=== PATIENT | female | born 1950 | race Caucasian/White ===

== ENCOUNTER 2016-04-27 02:27 | Emergency (ER) | payer OTHER ==
[2016-04-27 02:34] VITALS: O2SAT 97
--- NOTE | 2016-04-27 03:06 | EDPHY ---
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 She presents emergency room as she feels a foreign body sensation in the back of her throat she thinks maybe 1 of her pills got stuck in her throat. She is able swallow but has a discomfort when she swallows. She denies pain in her lung, denies vomiting, denies unable to swallow or drooling. She thinks happened around midnight when she took her magnesium pills which are somewhat large. Past Medical History: Thyroid disease, ?Insomnia Past Surgical History: denies recent pertinent surgical history Social History: denies use of drugs alcohol tobacco products Family History: Noncontributory ROS REVIEW OF SYSTEMS: A comprehensive 10 point review of systems is otherwise negative aside from elements mentioned in the history of present illness. Exam Constitutional triage nursing summary reviewed, vital signs reviewed, awake/ alert. Eyes normal conjunctivae and sclera, EOMI, PERRLA. HENT posterior pharynx is normal, no swelling, uvula midline, he would swallow no trismus, no stridor on exam, normal inspection, atraumatic, moist mucus membranes, no epistaxis, neck supple/ no meningismus, no raccoon eyes. Respiratory clear to auscultation bilaterally, normal breath sounds, no respiratory distress, no wheezing. Cardiovascular rate normal, regular rhythm, no murmur, no edema, distal pulses normal. Gastrointestinal soft, non-tender, no rebound, no guarding, normal bowel sounds, no distension, no pulsatile mass. Genitourinary no CVA tenderness. Musculoskeletal no midline vertebral tenderness, full range of motion, no calf swelling, no tenderness of extremities, no meningismus, good pulses, neurovascularly intact. Skin pink, warm, & dry, no rash, skin atraumatic. Neurologic awake, alert and oriented x 3, AAOx3, moves all 4 extremities equally, motor intact, sensory intact, CN II-XII intact, normal cerebellar, normal vision, normal speech. Psychiatric normal mood/affect. Heme/Lymph/Immune no lymphadenopathy. Differential Diagnosis: Includes but is not limited to in a particular order pill esophagitis, foreign body in throat, posterior pharynx scratch from ingestion of pill Medical Decision Making: Patient had a soft tissue x-ray neck to see if we can visualize any foreign body. Re-evaluate. Re-evaluation: 0422: ED x-ray soft tissue neck: negative for foreign body. 0422: patient p.o. challenge well with cold fluids no difficulty. She is not choking she is not drooling she is able swallow appropriately. She does have some mild discomfort when she swallows on the right side posterior pharynx. She is not coughing she is not gagging she is not drooling she is able tolerate her secretions and her airway is intact. She drank cold fluids without difficulty. Unlikely to have retained foreign body in the posterior pharynx most likely posterior pharynx irritation due to pill fragment.. 0428: Spoke with Dr. Gutierrez with ENT he would like to see the patient today in the office. patient is to call their at 8:30 a.m.. Source: Patient - Medical/Surgical History Hx Asthma: No Hx Chronic Respiratory Disease: No Hx Diabetes: No Hx Cardiac Disease: No Hx Renal Disease: No Hx Cirrhosis: No Hx Alcoholism: No Hx HIV/AIDS: No Hx Splenectomy or Spleen Trauma: No Other PMH: hypothyroid, abd laparoscopy - Social History Smoking Status: Never smoked Constitutional: Initial Vital Signs Temperature (C) 36.4 C 04/27/16 02:30 Heart Rate 65 04/27/16 02:30 Respiratory Rate 16 04/27/16 02:30 Blood Pressure 106/55 L 04/27/16 02:30 O2 Sat (%) 97 04/27/16 02:30 O2 Delivery Mode Room Air Allergies/Adverse Reactions: ampicillin [Ampicillin] Allergy (Intermediate, Verified 04/27/16 02:35) Hives lactose Allergy (Verified 04/27/16 02:35) Home Medications: Medication Instructions Recorded Doxepin HCl 04/27/16 LORAZEPAM 04/27/16 Levothyroxine 04/27/16 Liothyronine Sodium 04/27/16 MAGNESIUM 04/27/16 Melatonin 04/27/16 Departure - Departure Disposition: Home, Routine, Self-Care Clinical Impression: Pill dysphagia Condition: Good Instructions: Pharyngitis (ED) Additional Instructions: 1. Return emergency room immediately if he have trouble breathing. 2. Have you feel like your tract return emergency room. 3. please call ENT and follow up with them today. Please call at 8:30 a.m.. The number is [phone]. Please call Dr. Gutierrez office and follow up with him 4. if you are worse have worsening symptoms shortness of breath, choking sensation trouble breathing return immediately to the emergency room. Referrals: Tiana Ayala MD [Primary Care Provider] - As per Instructions Momo Gutierrez MD [Medical Doctor] - As per Instructions
[2016-04-27 04:43] VITALS: BP 130/55; PULSE 62; RESP 17; TEMP 97.7
== END 2016-04-27 04:43 | disposition home or self-care (01) ==
DX: R13.10 Dysphagia, unspecified (principal)

== ENCOUNTER → 2016-09-13 | Outpatient (CLI) | payer OTHER | LOC: BMCIMAGING 13:55 | PROVIDERS: ATTEND Family Medicine | DX: Z12.31 Encounter for screening mammogram for malignant neoplasm of breast (principal); Z13.820 Encounter for screening for osteoporosis; M81.0 Age-related osteoporosis without current pathological fracture | CPT/HCPCS: G0202 ==

== ENCOUNTER → 2017-01-03 | Outpatient (CLI) | payer OTHER ==
[~2017-01-03] MED LIST: IOPAMIDOL (ISOVUE-300) 100 ML BTL ONE
== END ==
LOC: FIMAGING 12:43
PROVIDERS: ATTEND Emergency Medicine
DX: R10.31 Right lower quadrant pain (principal); R53.83 Other fatigue; R93.5 Abnormal findings on diagnostic imaging of other abdominal regions, including retroperitoneum
CPT/HCPCS: Q9967

== ENCOUNTER 2017-01-05 12:26 | Inpatient (IN) | payer OTHER ==
[2017-01-05 13:13] LABS: PLATELET COUNT 161 10^3/uL (150-400)
[2017-01-05] MEDS ORDERED: NS 1,000 ML IV ONE ×2 (13:14→15:57)
--- NOTE | 2017-01-05 13:21 | EDPHY ---
H & P Time Seen by Provider: 01/05/17 12:54 HPI/ROS: HPI Balance problems, fever, headache, abdominal discomfort. 67-year-old female by private vehicle with her . This patient was seen at the [facility] 2 days ago for complaint of abdominal discomfort. She had a CT scan of her abdomen and pelvis done at that time. This showed a large macro lobulated pelvic mass likely uterine fibroids. Appendix was well visualized and was normal. She had a distended gallbladder. She had severe constipation. She reports that since yesterday she has had an intermittent fever. She reports that she has been feeling fatigued and today she reports that she has had balance problems which she describes as not being able to walk in a straight line with sudden onset of losing her balance. She also reports having a dull low-grade headache which was gradual in onset since yesterday. It is better now with Tylenol. No history of trauma. ROS: Constitutional: As above, no chills. No weakness. Eyes: No discharge. No changes in vision. ENT: No sore throat. No nasal congestion or rhinorrhea. Respiratory: No cough. No shortness of breath. Cardiac: No chest pain, no palpitations. Gastrointestinal: No abdominal pain, no vomiting, no diarrhea. Genitourinary: No hematuria. No dysuria or increased frequency with urination. Musculoskeletal: No back pain. No neck pain. No myalgias or arthralgias. Skin: No rashes. Neurological: No headache. No focal weakness or altered sensation. Past medical history: Abdominal surgery, hypothyroid. Social history: Nonsmoker. Here with her . No alcohol. Physical Exam: General Appearance: Alert, she does not appear in distress. She is frail in stature. This patient is responding to questions appropriately and in full sentences. Eyes: Pupils equal and round no pallor or injection. No lid edema, erythema or injection. ENT, Mouth: Mucous membranes are moist. The pharyngeal tissues are unremarkable. No edema or swelling. No asymmetry suggestive of abscess. No erythema or exudates. Respiratory: There are no retractions, lungs are clear to auscultation with good air movement bilaterally. Cardiovascular: Regular rate and rhythm. No murmur. Gastrointestinal: Abdomen is soft and nontender, no masses, bowel sounds normal. No focal tenderness at McBurney's point. No Richards sign. Neurological: Motor sensory function is grossly intact. Cranial nerves are normal. She will walk in a straight line and suddenly veer to her right side. Skin: Warm and dry, no rashes. Musculoskeletal: Neck is supple and nontender. Extremities are symmetrical. All joints range without pain or impingement. Psychiatric: No agitation. No depression. Database: EKG: Imaging: Diffusion-weighted MRI without contrast of brain: Age-related changes only. No acute pathology. Results were discussed with staff radiologist Dr. Bing Cruz. Chest x-ray PA and lateral; the cardiac mediastinal silhouette is unremarkable. She has a right middle lobe and right lower lobe consolidation/pneumonia. No other acute cardiopulmonary disease process noted. Interpreted by me. Procedures: Emergency department course: Vital signs reviewed. She has been hypotensive in the emergency department. She is afebrile currently. Pulse oximetry is 90% on room air. IV was placed. She was placed on a monitor. EKG performed and reviewed by myself. She will initially be given 500 cc to 1 L of IV normal saline. 2:40 p.m., the patient is currently in MRI. IV Rocephin and IV azithromycin have been ordered for treatment of pneumonia. 3:25 p.m., patient re-evaluated. She appears comfortable at this time. He is getting her IV antibiotics. Results of her MRI and plan for admission discussed. 3:30 p.m., patient's blood pressure is 101/58. Hospitalist is at the bedside. I discussed her case in detail with Dr. Watters. Patient admitted in stable condition. Differential Diagnosis: The differential diagnosis on this patient includes but is not limited to urinary tract infection, pneumonia, intracranial mass, cerebellar infarct. This represents a partial list of diagnoses considered. These considerations are based on history, physical exam, past history, reassessment and diagnostic testing. Smoking Status: Never smoked Constitutional: Initial Vital Signs Temperature (C) 37.1 C 01/05/17 12:32 Heart Rate 94 01/05/17 12:32 Respiratory Rate 18 01/05/17 12:32 Blood Pressure 80/44 L 01/05/17 12:32 O2 Sat (%) 91 L 01/05/17 12:32 O2 Delivery Mode Room Air Allergies/Adverse Reactions: ampicillin [Ampicillin] Allergy (Intermediate, Verified 04/27/16 02:35) Hives lactose Allergy (Verified 04/27/16 02:35) Home Medications: Medication Instructions Recorded Doxepin HCl 04/27/16 LORAZEPAM 04/27/16 Levothyroxine 04/27/16 Liothyronine Sodium 04/27/16 MAGNESIUM 04/27/16 Melatonin 04/27/16 Medical Decision Making - Diagnostics Imaging Results: Imaging Impressions Chest X-Ray 01/05/17 13:05 Impression: Right middle lobe and right lower lobe consolidation/pneumonia. Brain MRI 01/05/17 13:14 Impression: 1. Nothing acute intracranially to explain balance problems. 2. Mild amount of periventricular white matter disease best seen on axial T2 FLAIR sequence, nonspecific. Findings discussed with Catalina Cantrell MD, at 1514 hours, 01/05/2017. Final report concurs with initial preliminary interpretation. - Data Points Laboratory Results: Laboratory Results 01/05/17 12:58 01/05/17 12:58 01/05/17 01/05/17 01/05/17 14:15 13:20 12:58 WBC RBC Hgb Hct MCV MCH MCHC RDW Plt Count MPV Neut % (Auto) Lymph % (Auto) [place] % (Auto) Eos % (Auto) Baso % (Auto) Nucleat RBC Rel Count Absolute Neuts (auto) Absolute Lymphs (auto) Absolute Monos (auto) Absolute Eos (auto) Absolute Basos (auto) Absolute Nucleated RBC Immature Gran % Seg Neutrophils % Band Neutrophils % Lymphocytes % Monocytes % Immature Gran # Absolute Seg Neuts Absolute Band Neuts Absolute Lymphocytes Absolute Monocytes RBC/WBC/PLT Morphology Platelet Estimate PT 15.8 SEC H SEC (12.0-15.0) INR 1.26 H (0.83-1.16) APTT 40.4 SEC H SEC (23.0-38.0) VBG Lactic Acid Sodium Potassium Chloride Carbon Dioxide Anion Gap BUN Creatinine Estimated GFR Glucose Calcium Total Bilirubin TSH 1.480 uIU/mL uIU/mL (0.465-4.680) Urine Color YELLOW Urine Appearance HAZY Urine pH 6.0 (5.0-7.5) Ur Specific [place] 1.018 (1.002-1.030) Urine Protein 1+ H (NEGATIVE) Urine Ketones NEGATIVE (NEGATIVE) Urine Blood NEGATIVE (NEGATIVE) Urine Nitrate NEGATIVE (NEGATIVE) Urine Bilirubin NEGATIVE (NEGATIVE) Urine Urobilinogen NEGATIVE EU EU (0.2-1.0) Ur Leukocyte Esterase NEGATIVE (NEGATIVE) Urine RBC 1-3 /hpf /hpf (0-3) Urine WBC 3-5 /hpf H /hpf (0-3) Ur Epithelial Cells NONE SEEN /lpf /lpf (NONE-1+) Hyaline Casts 25-50 /lpf H /lpf (0-1) Urine Mucus TRACE /lpf /lpf (NONE-1+) Urine Glucose NEGATIVE (NEGATIVE) 01/05/17 01/05/17 01/05/17 12:58 12:58 12:58 WBC 6.17 10^3/uL 10^3/uL (3.80-9.50) RBC 4.00 10^6/uL L 10^6/uL (4.18-5.33) Hgb 12.6 g/dL g/dL (12.6-16.3) Hct 36.9 % L % (38.0-47.0) MCV 92.3 fL fL (81.5-99.8) MCH 31.5 pg pg (27.9-34.1) MCHC 34.1 g/dL g/dL (32.4-36.7) RDW 14.0 % % (11.5-15.2) Plt Count 161 10^3/uL 10^3/uL (150-400) MPV 10.3 fL fL (8.7-11.7) Neut % (Auto) 87.1 % H % (39.3-74.2) Lymph % (Auto) 9.9 % L % (15.0-45.0) [place] % (Auto) 1.8 % L % (4.5-13.0) Eos % (Auto) 0.0 % L % (0.6-7.6) Baso % (Auto) 1.0 % % (0.3-1.7) Nucleat RBC Rel Count 0.0 % % (0.0-0.2) Absolute Neuts (auto) 5.38 10^3/uL 10^3/uL (1.70-6.50) Absolute Lymphs (auto) 0.61 10^3/uL L 10^3/uL (1.00-3.00) Absolute Monos (auto) 0.11 10^3/uL L 10^3/uL (0.30-0.80) Absolute Eos (auto) 0.00 10^3/uL L 10^3/uL (0.03-0.40) Absolute Basos (auto) 0.06 10^3/uL 10^3/uL (0.02-0.10) Absolute Nucleated RBC 0.00 10^3/uL 10^3/uL (0-0.01) Immature Gran % 0.2 % % (0.0-1.1) Seg Neutrophils % 59 % % Band Neutrophils % 29 % % Lymphocytes % 9 % % Monocytes % 3 % % Immature Gran # 0.01 10^3/uL 10^3/uL (0.00-0.10) Absolute Seg Neuts 3.64 10^/uL 10^/uL (1.70-6.50) Absolute Band Neuts 1.79 10^3/uL H 10^3/uL (0.00-0.70) Absolute Lymphocytes 0.56 10^3/uL L 10^3/uL (1.00-3.00) Absolute Monocytes 0.19 10^3/uL L 10^3/uL (0.30-0.80) RBC/WBC/PLT Morphology NORMAL (NORMAL) Platelet Estimate ADEQUATE (ADEQ) PT INR APTT VBG Lactic Acid 1.6 mmol/L mmol/L (0.7-2.1) Sodium 135 mEq/L mEq/L (134-144) Potassium 4.4 mEq/L mEq/L (3.5-5.2) Chloride 100 mEq/L mEq/L (97-110) Carbon Dioxide 24 mEq/l mEq/l (22-31) Anion Gap 11 mEq/L mEq/L (8-16) BUN 34 mg/dL H mg/dL (7-23) Creatinine 1.1 mg/dL H mg/dL (0.6-1.0) Estimated GFR 50 Glucose 122 mg/dL H mg/dL (70-100) Calcium 9.1 mg/dL mg/dL (8.5-10.4) Total Bilirubin 0.6 mg/dL mg/dL (0.1-1.4) TSH Urine Color Urine Appearance Urine pH Ur Specific [place] Urine Protein Urine Ketones Urine Blood Urine Nitrate Urine Bilirubin Urine Urobilinogen Ur Leukocyte Esterase Urine RBC Urine WBC Ur Epithelial Cells Hyaline Casts Urine Mucus Urine Glucose Medications Given: Discontinued Medications Sodium Chloride (Ns) 1,000 mls @ 0 mls/hr IV EDNOW ONE; Wide Open PRN Reason: Protocol Stop: 01/05/17 13:15 Last Admin: 01/05/17 13:24 Dose: 1,000 mls Ceftriaxone Sodium/Dextrose (Rocephin 1 Gm (Premix)) 50 mls @ 100 mls/hr IV EDNOW ONE PRN Reason: Protocol Stop: 01/05/17 15:12 Last Admin: 01/05/17 15:18 Dose: 50 mls Departure - Departure Disposition: [facility] Inpatient Acute Clinical Impression: Hypotension, Ataxia, Pneumonia
[2017-01-05 13:27] LABS: INR 1.26 (0.83-1.16); PROTIME(PATIENT) 15.8 SEC (12.0-15.0)
[2017-01-05] MEDS ORDERED: HYDROmorphONE/DILAUDID 1 MG/ML INJ ONE (14:08)
[2017-01-05] MEDS ORDERED: AZITHROMYCIN IV 500 MG in D5W 250 ML IV ONE (14:43)
[2017-01-05] MEDS ORDERED: ONDANSETRON 4 MG/2 ML VIAL IVP PRN (15:57)
[2017-01-05] MEDS ORDERED: IPRATROPIUM/ALBUTEROL 3 ML DEYVIAL IH PRN (16:00)
[2017-01-05] MEDS ORDERED: BISACODYL 10 MG SUPP PR PRN (17:00)
--- NOTE | 2017-01-05 17:53 | GHP ---
[f rep st] HISTORY AND PHYSICAL DATE OF ADMISSION: 01/05/2017 CHIEF COMPLAINT: Fevers and abdominal pain. HISTORY OF PRESENT ILLNESS: This is a 67-year-old female with limited past medical history of hypoth yroidism and insomnia, who presents with a constellation of complaints including weakness, fevers, ab dominal discomfort. The patient was seen in an outpatient clinic this week with similar complaints a nd had CT imaging obtained, which showed a large pelvic mass most consistent with fibroids. The sergo ent returned home, was continuing to have discomfort and poor oral intake with what she described as weakness and fevers. Therefore, presented to the Emergency Department. In the ED, she denies any ch est pain. Reports that she has had some exertional shortness of breath and some cough nonproductive of sputum. She has had a lot of weakness and very little mobility. reports that her oral in take has been markedly reduced recently. She has described some weakness with ambulation, no specifi c numbness or tingling, as well as some headache and some lightheadedness. The patient reports passi ng of stool yesterday that she describes as difficult to pass, but soft when she passed it. Denies d ysuria or hematuria. Denies lower extremity edema, specific myalgias or arthralgias, but does endors e subjective fevers and chills. PAST MEDICAL HISTORY: 1. Hypothyroidism. 2. Insomnia. SOCIAL HISTORY: Negative for tobacco, alcohol, or illicit drugs. FAMILY HISTORY: Positive for colon cancer and bladder cancer in her father. ADVANCED DIRECTIVES: The patient is full cor, full tube. Her would be her medical decision maker. REVIEW OF SYSTEMS: A 10-point review of systems is negative with the exception of that reported in t he HPI. PHYSICAL EXAMINATION: VITAL SIGNS: Blood pressure systolic 80/44, heart rate 94, respiratory rate 1 8, saturating 91% on room air, 37.1. GENERAL: This is a thin appearing, frail appearing, elderly wo man in no acute distress. HEENT: Notable for dry mucous membranes. Eye exam is negative for any ic terus. CARDIAC: The patient is regular rate and rhythm. PULMONARY: Markedly reduced pulmonary eff ort. There are rales bilateral bases with reduced breath sounds on the right. GASTROINTESTINAL: Po sitive bowel sounds. Abdomen is soft. She is nontender to palpation. MUSCULOSKELETAL: Negative fo r any lower extremity edema. SKIN: Negative for any rashes. NEUROLOGIC: She is alert and oriented x3. PSYCHIATRIC: She is cooperative on interview and examination. LABORATORY DATA: White count is 6.1, hematocrit 36.9, platelets of 161, creatinine is 1.1 above rece nt baseline. BUN is elevated at 34. Urinalysis shows hyaline casts. CT of the abdomen, which I personally reviewed and interpreted, shows a large pelvic mass and constip ation. Chest x-ray, which I personally reviewed and interpreted, shows a right-sided infiltrate. ASSESSMENT AND PLAN: This is a 67-year-old female presenting with abdominal pain, fever, and weaknes s. 1. Community-acquired pneumonia. The patient has a pronounced right-sided infiltrate, including the middle and lower lobes, although fewer pulmonary symptoms. We will initiate IV ceftriaxone, azithro mycin, Mucinex and DuoNeb. Blood cultures were obtained from the Emergency Department. 2. Acute kidney injury, suspect secondary to hypovolemia. We will fluid resuscitate and recheck her kidney status in the morning. 3. Left-sided abdominal pain. The patient did have recent CT imaging showing a pelvic mass most con sistent with fibroids. However, the radiologist could not rule out ovarian involvement. I have orde red a pelvic ultrasound to better evaluate the ovaries. This image also showed profound constipation , which I think is likely the source of this patient's left-sided pain. We will initiate aggressive bowel regimen this evening, in hopes of appropriately treating her discomfort. 4. Weakness. This is a diffuse complaint. The patient did have an MRI of her brain in the Emergenc y Department, which was negative for any strokes. I suspect this is likely related to her acute illn ess, hypovolemia, poor p.o. intake. We will fluid resuscitate, encourage p.o., and see how the patie nt does with physical therapy and occupational therapy tomorrow. 5. Hypothyroidism. We will continue her Synthroid replacement therapy. PROPHYLAXIS: Lovenox. DIET: Regular. DISPOSITION: I expect greater than 2 midnights, as the patient is presenting with community-acquired pneumonia and weakness that I believe will likely take longer than 2 midnights to effectively treat before safe disposition home. I have discussed the case with the emergency room physician. The sergo ent will be triaged to the medical-surgical floor for IV fluids, IV antibiotics, and care. /[id number]/MODL
[2017-01-05] MEDS: SENNOSIDES/DOCUSATE SODIUM TAB PO SCH ×2 (17:54→21:06)
[2017-01-05] MEDS: POLYETHYLENE GLYCOL 3350 17 GM PKT PO SCH (17:54)
[2017-01-05] MEDS ORDERED: PSYLLIUM FIBER PO SCH (20:15)
[2017-01-05] MEDS ORDERED: MAGNESIUM PO SCH (21:00)
[2017-01-05] MEDS ORDERED: THEANINE PO SCH (21:00)
[2017-01-05] MEDS ORDERED: TRYPTOPHAN 500 MG PO SCH (21:00)
[2017-01-05] MEDS ORDERED: CALCIUM PO SCH (21:00)
[2017-01-05] MEDS ORDERED: Herbals/Supplements -Info Only PO SCH (21:00)
[2017-01-05] MEDS: MELATONIN 3 MG TAB PO SCH (21:06)
[2017-01-05] MEDS: guaiFENesin 600 MG TAB.ER PO SCH (21:07)
[2017-01-05] MEDS: LORazepam 0.5 MG TAB PO SCH (21:07)
[2017-01-05] MEDS: DOXEPIN HCL 25 MG CAP PO SCH (21:08)
[2017-01-05] MEDS: [UNRECOGNIZED DRUG - OTHER] PO SCH (21:10)
[2017-01-05] MEDS: ADVANCED PROBIOTIC PO SCH (21:12)
[2017-01-05] MEDS: TAURINE PO SCH (21:13)
[2017-01-05] MEDS: PSYLLIUM FIBER PO SCH (21:16)
--- NOTE | 2017-01-05 22:49 | PDMN ---
Medical Necessity Medical necessity: C/M review: Acute and persistent community acquired pneumonia, right sided infiltrate including middle and lower lobes on CXR, shortness of breath, acute kidney injury, BUN 34, Cr 1.1, left sided abdominal pain, weakness requiring ongoing IV Azithramycin QD, IV Ceftriaxone QD, IV Morphine, supplemental O2, acute inpt PT/OT, comorbid pelvic mass most consistent with fibroids on CT, hypothyroidism. MD anticipates > 2 MN LOS for ongoing med nec for eval and TX of above.
[2017-01-06 04:56] LABS: PLATELET COUNT 144 10^3/uL (150-400)
[2017-01-06] MEDS: LEVOTHYROXINE 100 MCG TAB PO SCH (05:46)
[2017-01-06] MEDS ORDERED: PSYLLIUM PO SCH (08:00)
[2017-01-06] MEDS: ADVANCED PROBIOTIC PO SCH ×2 (08:13→18:05)
[2017-01-06] MEDS: [UNRECOGNIZED DRUG - OTHER] PO SCH ×2 (08:13→18:05)
[2017-01-06] MEDS: PSYLLIUM FIBER PO SCH ×2 (08:17→18:07)
[2017-01-06] MEDS: POLYETHYLENE GLYCOL 3350 17 GM PKT PO SCH (08:18)
[2017-01-06] MEDS: guaiFENesin 600 MG TAB.ER PO SCH ×2 (08:19→21:19)
[2017-01-06] MEDS: ACETAMINOPHEN 325 MG TAB PO PRN ×3 (08:19→21:32)
[2017-01-06] MEDS: SENNOSIDES/DOCUSATE SODIUM TAB PO SCH ×2 (08:19→21:28)
[2017-01-06] MEDS: ENOXAPARIN 40 MG/0.4 ML SYR SC SCH (08:22)
--- NOTE | 2017-01-06 08:39 | HOSPPROG ---
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 -will request cog eval by speech -d/c morphine Hypothyroidism - cont replacement Constipation - has impacted stool -bowel regimen, prn enema Weakness / deconditioning - PT/OT DVT PPLX - lovenox Full code Dispo - cont inpt Subjective: Pt up in chair. Feels ok, still weak. +cough. No fevers. Has migrating pain in abdomen and ribs. Objective: Vital Signs Temp Pulse Resp BP Pulse Ox 36.8 C 90 16 102/61 88 L 01/06/17 07:13 01/06/17 07:13 01/06/17 07:13 01/06/17 07:13 01/06/17 07:13 Laboratory Results 01/06/17 04:23 01/06/17 04:23 01/05/17 01/06/17 01/07/17 06:59 05:59 05:59 Intake Total Balance PT 15.8 SEC (12.0-15.0) H 01/05/17 12:58 INR 1.26 (0.83-1.16) H 01/05/17 12:58 - Physical Exam Constitutional: no apparent distress Eyes: PERRL Ears, Nose, Mouth, Throat: moist mucous membranes Cardiovascular: regular rate and rhythym Respiratory: no respiratory distress, inspiratory crackles Gastrointestinal: normoactive bowel sounds, soft, non-tender abdomen Skin: warm Musculoskeletal: full muscle strength Neurologic: AAOx3 Psychiatric: poor insight ICD10 Worksheet Patient Problems: Problems Problem Status Onset Ataxia Acute Hypotension Acute Pneumonia Acute
--- NOTE | 2017-01-06 08:39 | HOSPPROG ---
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 -will request cog eval by speech -d/c morphine Hypothyroidism - cont replacement Constipation - has impacted stool -bowel regimen, prn enema Weakness / deconditioning - PT/OT DVT PPLX - lovenox Full code Dispo - cont inpt Subjective: Pt up in chair. Feels ok, still weak. +cough. No fevers. Has migrating pain in abdomen and ribs. Objective: Vital Signs Temp Pulse Resp BP Pulse Ox 36.8 C 90 16 102/61 88 L 01/06/17 07:13 01/06/17 07:13 01/06/17 07:13 01/06/17 07:13 01/06/17 07:13 Laboratory Results 01/06/17 04:23 01/06/17 04:23 01/05/17 01/06/17 01/07/17 06:59 05:59 05:59 Intake Total Balance PT 15.8 SEC (12.0-15.0) H 01/05/17 12:58 INR 1.26 (0.83-1.16) H 01/05/17 12:58 - Physical Exam Constitutional: no apparent distress Eyes: PERRL Ears, Nose, Mouth, Throat: moist mucous membranes Cardiovascular: regular rate and rhythym Respiratory: no respiratory distress, inspiratory crackles Gastrointestinal: normoactive bowel sounds, soft, non-tender abdomen Skin: warm Musculoskeletal: full muscle strength Neurologic: AAOx3 Psychiatric: poor insight ICD10 Worksheet Patient Problems: Problems Problem Status Onset Ataxia Acute Hypotension Acute Pneumonia Acute
--- NOTE | 2017-01-06 08:39 | HOSPPROG ---
Hospitalist Progress Note Assessment/Plan: Pneumococcal bacteremia secondary to CAP - Cont Ceftriaxone, await final Cx and sensitivities -repeat BCx's tomorrow at noon -if repeat BCxs neg and bacteria sensitive to oral agent, could possibly d/c on oral atbx x2 weeks -will discuss with ID FANNIE - resolved with IVF's Pelvic mass - likely fibroid, needs outpt f/u with CLINICAL PROGRAM CONSULTANT and ongoing surveillance u/s -used car salesperson consult requested ?cognitive impairment - acknowledge bacteremia may be contributing to cognitive changes. -will request cog eval by speech -d/c morphine Hypothyroidism - cont replacement Constipation - has impacted stool -bowel regimen, prn enema Weakness / deconditioning - PT/OT DVT PPLX - lovenox Full code Dispo - cont inpt Subjective: Pt up in chair. Feels ok, still weak. +cough. No fevers. Has migrating pain in abdomen and ribs. Objective: Vital Signs Temp Pulse Resp BP Pulse Ox 36.8 C 90 16 102/61 88 L 01/06/17 07:13 01/06/17 07:13 01/06/17 07:13 01/06/17 07:13 01/06/17 07:13 Laboratory Results 01/06/17 04:23 01/06/17 04:23 01/05/17 01/06/17 01/07/17 06:59 05:59 05:59 Intake Total Balance PT 15.8 SEC (12.0-15.0) H 01/05/17 12:58 INR 1.26 (0.83-1.16) H 01/05/17 12:58 - Physical Exam Constitutional: no apparent distress Eyes: PERRL Ears, Nose, Mouth, Throat: moist mucous membranes Cardiovascular: regular rate and rhythym Respiratory: no respiratory distress, inspiratory crackles Gastrointestinal: normoactive bowel sounds, soft, non-tender abdomen Skin: warm Musculoskeletal: full muscle strength Neurologic: AAOx3 Psychiatric: poor insight ICD10 Worksheet Patient Problems: Problems Problem Status Onset Ataxia Acute Hypotension Acute Pneumonia Acute
[2017-01-06] MEDS ORDERED: LIOTHYRONINE SODIUM 5 MCG TAB PO SCH (09:00)
[2017-01-06] MEDS: AZITHROMYCIN IV 500 MG in D5W 250 ML IV SCH (11:01)
--- NOTE | 2017-01-06 12:06 | ASMTCMCOM ---
CM Note CM Note Notes: Reviewed chart, spoke w/ FRANTZ Zhou for discharge plan, pt's progress. Pt admitted for abd pain, fever, viral pneumonia. Per MD notes, pt has lg pelvic mass, likely fibroids. Pt lives with her , independently. PT/OT evals pending sec to weakness and fatigue. Discharge needs remain TBD at this time. CM will cont to follow. Current Discharge Plan: To be determined Date Signed: 01/06/2017 12:06 PM Electronically Signed By:Talisha Steiner RN
[2017-01-06] MEDS: ONDANSETRON DISINTEGRATING 4 MG TAB PO PRN (12:22)
[2017-01-06] MEDS ORDERED: IBUPROFEN 200 MG TAB PO PRN (14:16)
[2017-01-06] MEDS ORDERED: LACTULOSE 20 GM/30 ML UDCUP PO PRN (15:07)
[2017-01-06] MEDS ORDERED: MAGNESIUM HYDROXIDE 30 ML UDCUP PO PRN (15:07)
--- NOTE | 2017-01-06 15:32 | PDCONSULT ---
Status Controller Note: Gynecology Consult Note Date of Consultation: 01/06/2017 Service Requesting Consult: Hospitalist (Internal Medicine Service) Reason for Consultation: Pelvic mass, abdominal pain HPI: The patient is a 67-year-old G0 menopausal white female who presented to ED on 01/05/17 with impaired gait and balance, headache, fever, weakness and abdominal pain. She was diagnosed with community-acquired pneumonia with a pronounced right-sided (middle and lower lung lobes) infiltrate and admitted for IV antibiotics and supportive care. Brain MRI showed age-related changed only with no acute pathology. Work-up of her left sided pain included review of recent CT scan (performed two days prior during [facility] visit for similar complaints) and a pelvic ultrasound was ordered and performed. US revealed an enlarged uterus (14 cm in diameter) which included more than one, heterogenous, lobulated uterus with exophytic appearing masses (likely fibroids) . The patient's past medical history is significant for hypothyroidism and insomnia. The patient does not provide a good history so far during this hospitalization, so it was unclear how long this pelvic mass has been present or if she has been previously made aware of possible fibroids. She states that she has never been , the she receives route well-woman annual exams at [facility], and that she has been menopausal for at least 15 years. Upon questioning, she states that she has had vaginal bleeding after intercourse after experiencing menopause, but again her history was unclear and vague. She reports diffuse, vague abdominal pain--she cannot point to a specific location or give a clear report of the frequency, quality, duration of pain or any alleviating to worsening factors that she has noted. PAST MEDICAL HISTORY: 1. Hypothyroidism 2. Insomnia 3. Menopausal since age 52. PAST SURGICAL HISTORY: 1. Abdominal surgery, patient cannot specify reason for surgery or date of surgery. MEDICATIONS: Doxepin HCl, Lorazepam, Levothyroxine, Liothyronine Sodium, Magnesium, Melatonin. ALLERGIES: Ampicillin (hives), Lactose Intolerance. 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 States she experienced menopause about 15 years ago. FAMILY HISTORY: Non-contributory. SOCIAL HISTORY: Denies ETOH or tobacco use. Lives with her (Mr. Cuello). ROS: A 10-point review of systems is negative with the exception of those reported in HPI above. PHYSICAL EXAM: Female book illustrator (patients nurse) was present for entire physical exam. VITALS: Blood Pressure: 102/61 Temp: 36.8C Resp: 16 O2: 89% RA. GENERAL: She is thin, frail elderly-appearing in no acute distress. She is alert and not clearly oriented to time, place, and but does know who she is. Her mood is sullen and her affect is not normal. NECK: Without thyromegaly or lymphadenopathy. LUNGS: Clear to auscultation, with decreased lung sounds in right lung maldonado. Reduced breath effort. HEART: Regular rate and rhythm without murmurs. BREASTS: Deferred. ABDOMEN: Bowel sounds present. Soft, nontender, and nondistended. Mass present in suprapubic region, non-tender to palpation. 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 Vulva, vagina, and urethra, all slightly atrophied. Speculum exam was not performed in hospital room, however bimanual exam was performed. Cervix was not enlarged. Uterus was enlarged, approximately [id number] uterus and slightly mobile. Patient tolerated exam without difficulty or complaint or excessive pain reported. Significantly distended rectum, full of soft stool was palpated through posterior vagina on bimanual exam. MSK: Negative for any lower extremity swelling. SKIN: Negative for rashes. LABS: WBC: 4.62 H/H: 10.9/33.0 Plt: 144; Na 137, K 4.6 Pelvic US: Large heterogeneous pelvic mass, likely representing an exophytic fibroid. This corresponds to a presumed fibroid uterus seen in 2007. I spoke with on-call radiologist today, Dr. Jeffery Villalba, and we reviewed available images togethercomparing 2007 study with yesterdays images. ASSESSMENT AND PLAN: 67-year-old menopausal female admitted to hospital for treatment of suspected Pneumococcal community-acquired pneumonia with multiple complaintsincluding vague abdominal pain. Work-up reveals previously seen (10 years ago) and similarly described (size and morphology) likely fibroid uterus. 1. Suspected enlarged uterus containing fibroid(s): Recommend follow-up with [facility] gynecology team following discharge from current hospitalization. Although mass is palpable on exam, patient does not have an urgent need for abdominal surgery. Her history is unclear regarding whether or not she has experienced post-menopausal bleeding. Endometrial sampling is recommended if we can confirm history of post-menopausal bleeding. 2. Constipation/impacted rectum: Recommend enema to relieve pressure in rectum and descending colon. This constipation could be significantly contributing to her abdominal pain and symptoms. Thanks for requesting help desk consultant services from the [facility] for gynecologic recommendations for your patient. Do not hesitate to contact our team again for further recommendations during Ms. Noyola admission. We will be available for additional consult at your request.
--- NOTE | 2017-01-06 15:32 | PDCONSULT ---
Chronic Disease Epidemiologist Note: Gynecology Consult Note Date of Consultation: 01/06/2017 Service Requesting Consult: Hospitalist (Internal Medicine Service) Reason for Consultation: Pelvic mass, abdominal pain HPI: The patient is a 67-year-old G0 menopausal white female who presented to ED on 01/05/17 with impaired gait and balance, headache, fever, weakness and abdominal pain. She was diagnosed with community-acquired pneumonia with a pronounced right-sided (middle and lower lung lobes) infiltrate and admitted for IV antibiotics and supportive care. Brain MRI showed age-related changed only with no acute pathology. Work-up of her left sided pain included review of recent CT scan (performed two days prior during [facility] visit for similar complaints) and a pelvic ultrasound was ordered and performed. US revealed an enlarged uterus (14 cm in diameter) which included more than one, heterogenous, lobulated uterus with exophytic appearing masses (likely fibroids) . The patient's past medical history is significant for hypothyroidism and insomnia. The patient does not provide a good history so far during this hospitalization, so it was unclear how long this pelvic mass has been present or if she has been previously made aware of possible fibroids. She states that she has never been , the she receives route well-woman annual exams at [facility], and that she has been menopausal for at least 15 years. Upon questioning, she states that she has had vaginal bleeding after intercourse after experiencing menopause, but again her history was unclear and vague. She reports diffuse, vague abdominal pain--she cannot point to a specific location or give a clear report of the frequency, quality, duration of pain or any alleviating to worsening factors that she has noted. PAST MEDICAL HISTORY: 1. Hypothyroidism 2. Insomnia 3. Menopausal since age 52. PAST SURGICAL HISTORY: 1. Abdominal surgery, patient cannot specify reason for surgery or date of surgery. MEDICATIONS: Doxepin HCl, Lorazepam, Levothyroxine, Liothyronine Sodium, Magnesium, Melatonin. ALLERGIES: Ampicillin (hives), Lactose Intolerance. 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 States she experienced menopause about 15 years ago. FAMILY HISTORY: Non-contributory. SOCIAL HISTORY: Denies ETOH or tobacco use. Lives with her (Mr. Cuello). ROS: A 10-point review of systems is negative with the exception of those reported in HPI above. PHYSICAL EXAM: Female examination scorer (patients nurse) was present for entire physical exam. VITALS: Blood Pressure: 102/61 Temp: 36.8C Resp: 16 O2: 89% RA. GENERAL: She is thin, frail elderly-appearing in no acute distress. She is alert and not clearly oriented to time, place, and but does know who she is. Her mood is sullen and her affect is not normal. NECK: Without thyromegaly or lymphadenopathy. LUNGS: Clear to auscultation, with decreased lung sounds in right lung maldonado. Reduced breath effort. HEART: Regular rate and rhythm without murmurs. BREASTS: Deferred. ABDOMEN: Bowel sounds present. Soft, nontender, and nondistended. Mass present in suprapubic region, non-tender to palpation. 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 Vulva, vagina, and urethra, all slightly atrophied. Speculum exam was not performed in hospital room, however bimanual exam was performed. Cervix was not enlarged. Uterus was enlarged, approximately [id number]-[id number] uterus and slightly mobile. Patient tolerated exam without difficulty or complaint or excessive pain reported. Significantly distended rectum, full of soft stool was palpated through posterior vagina on bimanual exam. MSK: Negative for any lower extremity swelling. SKIN: Negative for rashes. LABS: WBC: 4.62 H/H: 10.9/33.0 Plt: 144; Na 137, K 4.6 Pelvic US: Large heterogeneous pelvic mass, likely representing an exophytic fibroid. This corresponds to a presumed fibroid uterus seen in 2007. I spoke with on-call radiologist today, Dr. Jeffery Villalba, and we reviewed available images togethercomparing 2007 study with yesterdays images. ASSESSMENT AND PLAN: 67-year-old menopausal female admitted to hospital for treatment of suspected Pneumococcal community-acquired pneumonia with multiple complaintsincluding vague abdominal pain. Work-up reveals previously seen (10 years ago) and similarly described (size and morphology) likely fibroid uterus. 1. Suspected enlarged uterus containing fibroid(s): Recommend follow-up with [facility] gynecology team following discharge from current hospitalization. Although mass is palpable on exam, patient does not have an urgent need for abdominal surgery. Her history is unclear regarding whether or not she has experienced post-menopausal bleeding. Endometrial sampling is recommended if we can confirm history of post-menopausal bleeding. 2. Constipation/impacted rectum: Recommend enema to relieve pressure in rectum and descending colon. This constipation could be significantly contributing to her abdominal pain and symptoms. Thanks for requesting internet sales consultant services from the [facility] for gynecologic recommendations for your patient. Do not hesitate to contact our team again for further recommendations during Ms. Noyola admission. We will be available for additional consult at your request.
--- NOTE | 2017-01-06 15:32 | PDCONSULT ---
[employer] Chemist Note: Gynecology Consult Note Date of Consultation: 01/06/2017 Service Requesting Consult: Hospitalist (Internal Medicine Service) Reason for Consultation: Pelvic mass, abdominal pain HPI: The patient is a 67-year-old G0 menopausal white female who presented to ED on 01/05/17 with impaired gait and balance, headache, fever, weakness and abdominal pain. She was diagnosed with community-acquired pneumonia with a pronounced right-sided (middle and lower lung lobes) infiltrate and admitted for IV antibiotics and supportive care. Brain MRI showed age-related changed only with no acute pathology. Work-up of her left sided pain included review of recent CT scan (performed two days prior during [facility] visit for similar complaints) and a pelvic ultrasound was ordered and performed. US revealed an enlarged uterus (14 cm in diameter) which included more than one, heterogenous, lobulated uterus with exophytic appearing masses (likely fibroids) . The patient's past medical history is significant for hypothyroidism and insomnia. The patient does not provide a good history so far during this hospitalization, so it was unclear how long this pelvic mass has been present or if she has been previously made aware of possible fibroids. She states that she has never been , the she receives route well-woman annual exams at [facility], and that she has been menopausal for at least 15 years. Upon questioning, she states that she has had vaginal bleeding after intercourse after experiencing menopause, but again her history was unclear and vague. She reports diffuse, vague abdominal pain--she cannot point to a specific location or give a clear report of the frequency, quality, duration of pain or any alleviating to worsening factors that she has noted. PAST MEDICAL HISTORY: 1. Hypothyroidism 2. Insomnia 3. Menopausal since age 52. PAST SURGICAL HISTORY: 1. Abdominal surgery, patient cannot specify reason for surgery or date of surgery. MEDICATIONS: Doxepin HCl, Lorazepam, Levothyroxine, Liothyronine Sodium, Magnesium, Melatonin. ALLERGIES: Ampicillin (hives), Lactose Intolerance. 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 States she experienced menopause about 15 years ago. FAMILY HISTORY: Non-contributory. SOCIAL HISTORY: Denies ETOH or tobacco use. Lives with her (Mr. Cuello). ROS: A 10-point review of systems is negative with the exception of those reported in HPI above. PHYSICAL EXAM: Female mastercam programmer (patients nurse) was present for entire physical exam. VITALS: Blood Pressure: 102/61 Temp: 36.8C Resp: 16 O2: 89% RA. GENERAL: She is thin, frail elderly-appearing in no acute distress. She is alert and not clearly oriented to time, place, and but does know who she is. Her mood is sullen and her affect is not normal. NECK: Without thyromegaly or lymphadenopathy. LUNGS: Clear to auscultation, with decreased lung sounds in right lung maldonado. Reduced breath effort. HEART: Regular rate and rhythm without murmurs. BREASTS: Deferred. ABDOMEN: Bowel sounds present. Soft, nontender, and nondistended. Mass present in suprapubic region, non-tender to palpation. 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 Vulva, vagina, and urethra, all slightly atrophied. Speculum exam was not performed in hospital room, however bimanual exam was performed. Cervix was not enlarged. Uterus was enlarged, approximately 98-[id number]-wtrzl uterus and slightly mobile. Patient tolerated exam without difficulty or complaint or excessive pain reported. Significantly distended rectum, full of soft stool was palpated through posterior vagina on bimanual exam. MSK: Negative for any lower extremity swelling. SKIN: Negative for rashes. LABS: WBC: 4.62 H/H: 10.9/33.0 Plt: 144; Na 137, K 4.6 Pelvic US: Large heterogeneous pelvic mass, likely representing an exophytic fibroid. This corresponds to a presumed fibroid uterus seen in 2007. I spoke with on-call radiologist today, Dr. Jeffery Villalba, and we reviewed available images togethercomparing 2007 study with yesterdays images. ASSESSMENT AND PLAN: 67-year-old menopausal female admitted to hospital for treatment of suspected Pneumococcal community-acquired pneumonia with multiple complaintsincluding vague abdominal pain. Work-up reveals previously seen (10 years ago) and similarly described (size and morphology) likely fibroid uterus. 1. Suspected enlarged uterus containing fibroid(s): Recommend follow-up with [facility] gynecology team following discharge from current hospitalization. Although mass is palpable on exam, patient does not have an urgent need for abdominal surgery. Her history is unclear regarding whether or not she has experienced post-menopausal bleeding. Endometrial sampling is recommended if we can confirm history of post-menopausal bleeding. 2. Constipation/impacted rectum: Recommend enema to relieve pressure in rectum and descending colon. This constipation could be significantly contributing to her abdominal pain and symptoms. Thanks for requesting marketing sales consultant services from the [facility] for gynecologic recommendations for your patient. Do not hesitate to contact our team again for further recommendations during Ms. Noyola admission. We will be available for additional consult at your request.
[2017-01-06] MEDS: DOXEPIN HCL 25 MG CAP PO SCH (21:19)
[2017-01-06] MEDS: LORazepam 0.5 MG TAB PO SCH (21:19)
[2017-01-06] MEDS: MELATONIN 3 MG TAB PO SCH (21:19)
[2017-01-06] MEDS: TAURINE PO SCH (21:20)
[2017-01-06] MEDS: THEANINE PO SCH (21:23)
[2017-01-06] MEDS: TRYPTOPHAN 500 MG PO SCH (21:24)
[2017-01-06] MEDS: CALCIUM PO SCH (21:25)
[2017-01-06] MEDS: MAGNESIUM PO SCH (21:25)
[2017-01-07 05:18] LABS: PLATELET COUNT 184 10^3/uL (150-400)
[2017-01-07] MEDS: LIOTHYRONINE SODIUM 5 MCG TAB PO SCH (06:26)
[2017-01-07] MEDS: LEVOTHYROXINE 112 MCG TAB PO SCH (06:26)
[2017-01-07] MEDS: guaiFENesin 600 MG TAB.ER PO SCH ×2 (08:03→20:24)
[2017-01-07] MEDS: ENOXAPARIN 40 MG/0.4 ML SYR SC SCH (08:03)
[2017-01-07] MEDS: SENNOSIDES/DOCUSATE SODIUM TAB PO SCH ×2 (08:03→22:41)
[2017-01-07] MEDS: PSYLLIUM FIBER PO SCH ×2 (08:05→16:54)
[2017-01-07] MEDS: ADVANCED PROBIOTIC PO SCH ×2 (08:05→16:54)
[2017-01-07] MEDS: [UNRECOGNIZED DRUG - OTHER] PO SCH ×2 (08:05→16:53)
[2017-01-07] MEDS: POLYETHYLENE GLYCOL 3350 17 GM PKT PO SCH (08:10)
[2017-01-07] MEDS: ACETAMINOPHEN 325 MG TAB PO PRN ×3 (08:23→20:23)
[2017-01-07] MEDS: AZITHROMYCIN IV 500 MG in D5W 250 ML IV SCH (09:07)
--- NOTE | 2017-01-07 10:22 | HOSPPROG ---
Hospitalist Progress Note Assessment/Plan: Pneumococcal bacteremia secondary to CAP - Cont Ceftriaxone, await final Cx and sensitivities -repeat BCx's today were drawn at 1400 (dated as 01/06, but I confirmed with lab they were drawn today) -if repeat BCxs neg and bacteria sensitive to oral agent, could possibly d/c on oral atbx -will discuss duration of atbx with ID FANNIE - resolved with IVF's Pelvic mass - likely fibroid -heat plant specialist consulted yesterday, recommends outpt f/u with [facility] ?cognitive impairment - acknowledge bacteremia may be contributing to cognitive changes. -will request cog eval by speech -d/c morphine Hypothyroidism - cont replacement Constipation - has impacted stool -bowel regimen, prn enema Weakness / deconditioning - PT/OT DVT PPLX - lovenox Full code Dispo - cont inpt Subjective: Pt feels okay, still has migrating abdominal pain, heating pad helps. No fevers. A little cough. No CP or SOB. No fevers. Feels more steady on her feet. Objective: Vital Signs Temp Pulse Resp BP Pulse Ox 36.8 C 72 16 104/57 L 89 L 01/07/17 08:00 01/07/17 08:00 01/07/17 08:00 01/07/17 08:00 01/07/17 09:53 Laboratory Results 01/07/17 04:37 01/06/17 04:23 01/06/17 01/07/17 01/08/17 05:59 05:59 05:59 Intake Total 650 Balance 650 PT 15.8 SEC (12.0-15.0) H 01/05/17 12:58 INR 1.26 (0.83-1.16) H 01/05/17 12:58 - Physical Exam Constitutional: no apparent distress Eyes: PERRL Ears, Nose, Mouth, Throat: moist mucous membranes Cardiovascular: regular rate and rhythym Respiratory: no respiratory distress Gastrointestinal: normoactive bowel sounds, soft, non-tender abdomen Skin: warm Musculoskeletal: full muscle strength Neurologic: AAOx3 Psychiatric: interacting appropriately ICD10 Worksheet Patient Problems: Problems Problem Status Onset Ataxia Acute Hypotension Acute Pneumonia Acute
--- NOTE | 2017-01-07 10:22 | HOSPPROG ---
Hospitalist Progress Note Assessment/Plan: Pneumococcal bacteremia secondary to CAP - Cont Ceftriaxone, await final Cx and sensitivities -repeat BCx's today were drawn at 1400 (dated as 01/06, but I confirmed with lab they were drawn today) -if repeat BCxs neg and bacteria sensitive to oral agent, could possibly d/c on oral atbx -will discuss duration of atbx with ID FANNIE - resolved with IVF's Pelvic mass - likely fibroid -scoreboard operator consulted yesterday, recommends outpt f/u with [facility] ?cognitive impairment - acknowledge bacteremia may be contributing to cognitive changes. -will request cog eval by speech -d/c morphine Hypothyroidism - cont replacement Constipation - has impacted stool -bowel regimen, prn enema Weakness / deconditioning - PT/OT DVT PPLX - lovenox Full code Dispo - cont inpt Subjective: Pt feels okay, still has migrating abdominal pain, heating pad helps. No fevers. A little cough. No CP or SOB. No fevers. Feels more steady on her feet. Objective: Vital Signs Temp Pulse Resp BP Pulse Ox 36.8 C 72 16 104/57 L 89 L 01/07/17 08:00 01/07/17 08:00 01/07/17 08:00 01/07/17 08:00 01/07/17 09:53 Laboratory Results 01/07/17 04:37 01/06/17 04:23 01/06/17 01/07/17 01/08/17 05:59 05:59 05:59 Intake Total 650 Balance 650 PT 15.8 SEC (12.0-15.0) H 01/05/17 12:58 INR 1.26 (0.83-1.16) H 01/05/17 12:58 - Physical Exam Constitutional: no apparent distress Eyes: PERRL Ears, Nose, Mouth, Throat: moist mucous membranes Cardiovascular: regular rate and rhythym Respiratory: no respiratory distress Gastrointestinal: normoactive bowel sounds, soft, non-tender abdomen Skin: warm Musculoskeletal: full muscle strength Neurologic: AAOx3 Psychiatric: interacting appropriately ICD10 Worksheet Patient Problems: Problems Problem Status Onset Ataxia Acute Hypotension Acute Pneumonia Acute
[2017-01-07] MEDS: BIOASTIN PO SCH (13:14)
[2017-01-07] MEDS: PRESERVISION PO SCH ×2 (16:53→22:31)
[2017-01-07] MEDS: ONDANSETRON DISINTEGRATING 4 MG TAB PO PRN (18:06)
[2017-01-07] MEDS: MELATONIN 3 MG TAB PO SCH (22:26)
[2017-01-07] MEDS: DOXEPIN HCL 25 MG CAP PO SCH (22:26)
[2017-01-07] MEDS: LORazepam 0.5 MG TAB PO SCH (22:26)
[2017-01-07] MEDS: THEANINE PO SCH (22:28)
[2017-01-07] MEDS: CALCIUM PO SCH (22:29)
[2017-01-07] MEDS: MAGNESIUM PO SCH (22:29)
[2017-01-07] MEDS: TRYPTOPHAN 500 MG PO SCH (22:30)
[2017-01-07] MEDS: TAURINE PO SCH (22:33)
[2017-01-08] MEDS: BIOASTIN PO SCH (07:31)
[2017-01-08] MEDS: [UNRECOGNIZED DRUG - OTHER] PO SCH ×2 (07:32→17:02)
[2017-01-08] MEDS: PSYLLIUM FIBER PO SCH ×2 (07:33→17:07)
[2017-01-08] MEDS: PRESERVISION PO SCH ×2 (07:35→17:04)
[2017-01-08] MEDS: ADVANCED PROBIOTIC PO SCH ×2 (07:35→17:02)
[2017-01-08] MEDS: LIOTHYRONINE SODIUM 5 MCG TAB PO SCH (07:36)
[2017-01-08] MEDS: LEVOTHYROXINE 100 MCG TAB PO SCH (07:36)
[2017-01-08] MEDS: SENNOSIDES/DOCUSATE SODIUM TAB PO SCH ×2 (07:58→22:29)
[2017-01-08] MEDS: ENOXAPARIN 40 MG/0.4 ML SYR SC SCH (07:59)
[2017-01-08] MEDS: guaiFENesin 600 MG TAB.ER PO SCH ×2 (08:01→22:30)
[2017-01-08] MEDS: AZITHROMYCIN IV 500 MG in D5W 250 ML IV SCH (08:50)
[2017-01-08] MEDS: ACETAMINOPHEN 325 MG TAB PO PRN ×3 (09:24→21:43)
[2017-01-08] MEDS: POLYETHYLENE GLYCOL 3350 17 GM PKT PO SCH ×2 (11:45→13:30)
--- NOTE | 2017-01-08 14:44 | ASMTCMCOM ---
CM Note CM Note Notes: PT and OT are discharging pt from services. Pt will most likely be able to d/c independent when medically stable. CM available for changes. Date Signed: 01/08/2017 02:43 PM Electronically Signed By:CADENCE Kingsley
--- NOTE | 2017-01-08 14:54 | GCON ---
[f rep st] CONSULTATION INFECTIOUS DISEASE CONSULTATION DATE OF CONSULTATION: 01/08/2017 REFERRING PHYSICIAN: Ning James MD REASON FOR CONSULTATION: Pneumococcal bacteremia with pneumonia. CHIEF COMPLAINT: Fevers, right-sided pain. HISTORY OF PRESENT ILLNESS: This is a 67-year-old female with a past medical history significant for hypothyroidism and insomnia, who states that she started to feel ill around of last week. Initially, she had pain on the right side of her abdomen with some myalgias and chills. Over the nex t couple of days she started to have fevers ranging up to 101 with ongoing chills, increasing right-s ided pain, and now cough. She does not recall being too short of breath in general. She came into [facility] ED and had a chest x-ray, which showed that she had a right middle lobe and lower lobe pneumonia. She came to the ED on the . She was noted to have elevated white blood cell count of 11.7 with a left shift. An abdominal CT was done at that time, which showed a large macrolobulated pelvic mass suggestive of a uterine fibroid, but she came back to the ER on the because she continued to not feel well, and at that time a chest x-ray showed the above findings. She had blood cultures x2 sets drawn at the time and 2 bottles in that set are growing Streptococcus pneumoniae. She was placed on empiric ceftriaxone and azithromycin at the time of admission, and is currently still on that regimen . Her pneumococcal isolate is angel sensitive. She had followup blood cultures done yesterday, which are pending. Her white blood cell count has normalized along with her left shift. She is currently off oxygen, but previously was on 2 L. She has mostly a dry cough. She has a poor inspiratory effor t, is not bringing up any phlegm. Infectious Disease is now consulted for further evaluation seconda ry to the above. REVIEW OF SYSTEMS: GENERAL: Had fevers and shaking chills. HEAD: Mild headache. EYES: No change in vision. ENT: No sore throat, difficulty swallowing, ear pain or ear drainage. CARDIOVASCULAR: Denies any chest pain or rapid heartbeat. RESPIRATORY: Denies any shortness of breath, but is havi ng cough, mostly dry in nature, with poor inspiratory effort. ABDOMEN: Lower abdomen with still miya e discomfort. Previously had nausea. No vomiting at present. Had a small bowel movement. : No dysuria or hematuria. MUSCULOSKELETAL: Denies any joint pains or muscle aches. SKIN: No rashes. Rest of 10-point review of systems essentially negative except for above. PAST MEDICAL HISTORY: Significant for hypothyroidism and insomnia. PAST SURGICAL HISTORY: Significant for hernia surgery, laparoscopy, and a melanoma excision involvin g her right lower extremity. ALLERGIES: Ampicillin, which she states was a long time ago and it gave her hives. She denied short ness of breath or throat swelling, and she is tolerating ceftriaxone at present. SOCIAL HISTORY: Denies any smoking history. Drinks alcohol socially. No illicit drugs. She lives with her and her dog. She did not travel outside the country recently and her travels outsid [facility] were to the [facility] in September and [facility], in November. FAMILY HISTORY: Significant for colon cancer and bladder cancer in her father. PHYSICAL EXAMINATION: VITAL SIGNS: Temperature current 37.2, pulse is 75, blood pressure 103/60, re spiratory rate is 18, saturations are 92% on room air. GENERAL: The patient is sitting up in a olga r. No acute respiratory distress. Awake, alert, oriented x3. HEENT: Head is normocephalic, atraum atic. Eyes without conjunctival injection. No petechiae noted. Oropharynx is clear without posteri or erythema or thrush. CARDIOVASCULAR: S1, S2. Regular rate and rhythm. No murmurs appreciated. RESPIRATORY: Coarse breath sounds on the right. Normal lung maldonado with egophony changes. ABDOMEN: Positive bowel sounds in all quadrants. Soft, nondistended. Some tenderness in the lower abdomen. MUSCULOSKELETAL: No obvious joint effusions. SKIN: No obvious lower extremity edema. No obvious rashes. LABORATORY DATA: White blood cell count is 4.8, hemoglobin 11.3, platelets 184. Sodium 137, potassi um 4.6, chloride 104, bicarb 27, BUN is 22, creatinine 0.8. LFTs several days ago within the normal range. Urinalysis on admission unremarkable. Blood cultures as stated above. IMAGING: Has also been reviewed by me. She also had a pelvic ultrasound, which showed a fibroid. ASSESSMENT: Pneumococcal bacteremia with right middle lobe and lower lobe pneumonia. PLAN: The patient is currently on both ceftriaxone and azithromycin at present. She is clinically d oing better from her time of admission. Her pneumococcal isolate is angel sensitive. Would discontinu e azithromycin and ceftriaxone for now. She could start on Levaquin in the morning to complete 10 da ys more of therapy. We will follow up on her blood cultures to ensure that they are negative. Would recommend a followup chest x-ray in 4-6 weeks to ensure resolution. Thank you very much for allowing us the opportunity to care for the patient in consultation. /[id number]/MODL
--- NOTE | 2017-01-08 17:06 | HOSPPROG ---
Hospitalist Progress Note Assessment/Plan: Pneumococcal bacteremia secondary to CAP - Cont Ceftriaxone for now. -repeat BCx's yesterday pending -discussed with ID, plan to d/c on oral Levaquin for 10 more days of tx -ID to f/u on repeat BCx's FANNIE - resolved with IVF's Pelvic mass - likely fibroid -content development manager consulted yesterday, recommends outpt f/u with [facility] ?cognitive impairment - acknowledge bacteremia may be contributing to cognitive changes. -speech evaluating, recs outpt rehab Hypothyroidism - cont replacement Constipation - has impacted stool -bowel regimen, prn enema Weakness / deconditioning - PT/OT DVT PPLX - lovenox Full code Dispo - cont inpt, likely dc in am Subjective: Pt feels better. Less cough, SOB. No CP. No fevers. Energy improved. Eating well. Objective: Vital Signs Temp Pulse Resp BP Pulse Ox 37.1 C 73 16 111/65 91 L 01/08/17 15:34 01/08/17 15:34 01/08/17 15:34 01/08/17 15:34 01/08/17 15:34 Laboratory Results 01/07/17 04:37 01/06/17 04:23 01/07/17 01/08/17 01/09/17 05:59 05:59 05:59 Intake Total 650 300 Balance 650 300 PT 15.8 SEC (12.0-15.0) H 01/05/17 12:58 INR 1.26 (0.83-1.16) H 01/05/17 12:58 - Physical Exam Constitutional: no apparent distress Eyes: PERRL Ears, Nose, Mouth, Throat: moist mucous membranes Cardiovascular: regular rate and rhythym Respiratory: no respiratory distress, inspiratory crackles Gastrointestinal: normoactive bowel sounds, soft, non-tender abdomen Skin: warm Musculoskeletal: full muscle strength Neurologic: AAOx3 Psychiatric: interacting appropriately ICD10 Worksheet Patient Problems: Problems Problem Status Onset Ataxia Acute Hypotension Acute Pneumonia Acute
[2017-01-08] MEDS: TRYPTOPHAN 500 MG PO SCH (22:26)
[2017-01-08] MEDS: TAURINE PO SCH ×2 (22:27→22:34)
[2017-01-08] MEDS: MAGNESIUM PO SCH (22:28)
[2017-01-08] MEDS: CALCIUM PO SCH (22:28)
[2017-01-08] MEDS: DOXEPIN HCL 25 MG CAP PO SCH (22:30)
[2017-01-08] MEDS: MELATONIN 3 MG TAB PO SCH (22:30)
[2017-01-08] MEDS: LORazepam 0.5 MG TAB PO SCH (22:31)
[2017-01-08] MEDS: THEANINE PO SCH (22:35)
[2017-01-08 22:48] VITALS: RESP 14
[2017-01-09] MEDS: LEVOTHYROXINE 112 MCG TAB PO SCH (06:29)
[2017-01-09] MEDS: LIOTHYRONINE SODIUM 5 MCG TAB PO SCH (06:29)
[2017-01-09 07:41] VITALS: BP 119/61; PULSE 76; TEMP 98.2
[2017-01-09] MEDS: [UNRECOGNIZED DRUG - OTHER] PO SCH (07:45)
[2017-01-09] MEDS: ADVANCED PROBIOTIC PO SCH (07:46)
[2017-01-09] MEDS: PSYLLIUM FIBER PO SCH (07:47)
--- NOTE | 2017-01-09 08:39 | PDHOMEO2F ---
Home Oxygen Face to Face Home Orders: I certify that a physician or a nurse practitioner or physician's junior administrative assistant has had a fawh-cz-iody encounter with this patient on the date of this order due to the diagnosis listed, which relates to the primary reason the patient requires home oxygen. Alternative treatments have been tried, or considered, and deemed ineffective. It is anticipated that supplemental oxygen will result in improvement with treatment. Home oxygen qualifying diagnosis: Pneumonia SpO2 on room air (%): 85 Frequency of home oxygen needed: during sleep Home oxygen liters per minute: 2 LPM Home oxygen delivery device: nasal cannula Concentrator: Yes E-tanks for mobility and back up: No I certify that, based on these findings, the home oxygen is medically necessary for this patient for the following length of time. Length of time home oxygen needed: 1 month
--- NOTE | 2017-01-09 08:39 | PDHOMEO2F ---
Home Oxygen Face to Face Home Orders: I certify that a physician or a nurse practitioner or physician's administrative office assistant has had a xnwk-pq-fpez encounter with this patient on the date of this order due to the diagnosis listed, which relates to the primary reason the patient requires home oxygen. Alternative treatments have been tried, or considered, and deemed ineffective. It is anticipated that supplemental oxygen will result in improvement with treatment. Home oxygen qualifying diagnosis: Pneumonia SpO2 on room air (%): 85 Frequency of home oxygen needed: during sleep Home oxygen liters per minute: 2 LPM Home oxygen delivery device: nasal cannula Concentrator: Yes E-tanks for mobility and back up: No I certify that, based on these findings, the home oxygen is medically necessary for this patient for the following length of time. Length of time home oxygen needed: 1 month
--- NOTE | 2017-01-09 08:39 | PDHOMEO2F ---
Home Oxygen Face to Face Home Orders: I certify that a physician or a nurse practitioner or physician's care assistant has had a bvdy-yc-lpog encounter with this patient on the date of this order due to the diagnosis listed, which relates to the primary reason the patient requires home oxygen. Alternative treatments have been tried, or considered, and deemed ineffective. It is anticipated that supplemental oxygen will result in improvement with treatment. Home oxygen qualifying diagnosis: Pneumonia SpO2 on room air (%): 85 Frequency of home oxygen needed: during sleep Home oxygen liters per minute: 2 LPM Home oxygen delivery device: nasal cannula Concentrator: Yes E-tanks for mobility and back up: No I certify that, based on these findings, the home oxygen is medically necessary for this patient for the following length of time. Length of time home oxygen needed: 1 month
--- NOTE | 2017-01-09 09:17 | GDS ---
[f rep st] DISCHARGE SUMMARY DISCHARGE DIAGNOSES: 1. Pneumococcal bacteremia secondary to community-acquired pneumonia. 2. Community-acquired pneumonia. 3. Acute kidney injury, resolved. 4. Pelvic mass, likely fibroid. 5. Cognitive impairment. 6. Hypothyroidism. 7. Constipation. CONSULTANTS: Dr. Angie Nava, Infectious Disease; Dr. Brando Ramos MARINE DIESEL MECHANIC IMAGING STUDIES/PROCEDURES: 1. Chest x-ray January 05, 2017, showed right middle lobe and right lower lobe pneumonia. 2. Pelvic ultrasound January 05, 2017, showed a large heterogeneous pelvic mass likely representing an exophytic fibroid, which corresponds to the presumed fibroid of the uterus seen back in 2006. The re was some noted mild variation between the current study and the older ultrasound, and a followup u ltrasound was recommended in 3-6 months. HISTORY OF DETAILS: Please see the history and physical dated January 05, 2017. In brief, the patie isidoro is a 67-year-old female with history of hypothyroidism, who presents to the emergency department w ith fever and abdominal pain. Workup revealed a pronounced right-sided infiltrate. The patient was admitted to the hospital for further management. HOSPITAL COURSE: The patient was admitted to the medical-surgical unit. She was initially treated w ith IV ceftriaxone and azithromycin. Blood cultures were drawn and were positive for Streptococcus p neumoniae, which was likely the organism causing her community-acquired pneumonia. She required 2 L of oxygen on admission. She was weaned down to room air, but continued to desat to the mid 80s while sleeping, and then , was discharged on home oxygen for nighttime use. Repeat blood cultu res were obtained on January 07 and remain negative to date at nearly 48 hours at the time of dischar ge. Infectious Disease consult was obtained. Her Strep pneumoniae is pansensitive and, therefore, s he will be able to complete 14 days of antibiotic therapy on oral Levaquin. She was given a prescrip tion for 10 more days of Levaquin for this purpose, and ID will follow up on her cultures to ensure t hey remain negative. CURED MEAT PACKING SUPERVISOR consult was obtained given her large fibroid mass in the setting of abdomin al pain. He recommends outpatient followup with CURED MEAT PACKING SUPERVISOR. She is referred to the [facility] for this purpose. DISPOSITION: Patient is discharged home in stable condition. FOLLOWUP: 1. Dr. Tiana Ayala, primary care provider, in 1 week to recheck her oxygen saturations. The sergo ent also needs a followup chest x-ray in 4-6 weeks to ensure resolution of her pneumonia. 2. Dr. Mel Dean, CURED MEAT PACKING SUPERVISOR, to further discuss management of her exophytic fibroid mass. DISCHARGE MEDICATIONS: Please see [facility] for completed outpatient medication list. New medication s on discharge include Tylenol 650 mg p.o. q.6 hours p.r.n., guaifenesin 1200 mg p.o. twice daily, ib uprofen 400 mg p.o. q.6 hours p.r.n., Levaquin 750 mg p.o. daily for 10 more days, MiraLAX 17 g p.o. daily p.r.n., and Senokot 1-2 tablets p.o. twice daily p.r.n. She is also discharged on nocturnal ox ygen at 2 L/minute and will follow up with her PCP to determine when her sats are improved, and she c an discontinue home oxygen. /[id number]/MODL
--- NOTE | 2017-01-09 09:17 | GDS ---
[f rep st] DISCHARGE SUMMARY DISCHARGE DIAGNOSES: 1. Pneumococcal bacteremia secondary to community-acquired pneumonia. 2. Community-acquired pneumonia. 3. Acute kidney injury, resolved. 4. Pelvic mass, likely fibroid. 5. Cognitive impairment. 6. Hypothyroidism. 7. Constipation. CONSULTANTS: Dr. Angie Nava, Infectious Disease; Dr. Brando Ramos COLLISION WORKER IMAGING STUDIES/PROCEDURES: 1. Chest x-ray January 05, 2017, showed right middle lobe and right lower lobe pneumonia. 2. Pelvic ultrasound January 05, 2017, showed a large heterogeneous pelvic mass likely representing an exophytic fibroid, which corresponds to the presumed fibroid of the uterus seen back in 2006. The re was some noted mild variation between the current study and the older ultrasound, and a followup u ltrasound was recommended in 3-6 months. HISTORY OF DETAILS: Please see the history and physical dated January 05, 2017. In brief, the patie isidoro is a 67-year-old female with history of hypothyroidism, who presents to the emergency department w ith fever and abdominal pain. Workup revealed a pronounced right-sided infiltrate. The patient was admitted to the hospital for further management. HOSPITAL COURSE: The patient was admitted to the medical-surgical unit. She was initially treated w ith IV ceftriaxone and azithromycin. Blood cultures were drawn and were positive for Streptococcus p neumoniae, which was likely the organism causing her community-acquired pneumonia. She required 2 L of oxygen on admission. She was weaned down to room air, but continued to desat to the mid 80s while sleeping, and then , was discharged on home oxygen for nighttime use. Repeat blood cultu res were obtained on January 07 and remain negative to date at nearly 48 hours at the time of dischar ge. Infectious Disease consult was obtained. Her Strep pneumoniae is pansensitive and, therefore, s he will be able to complete 14 days of antibiotic therapy on oral Levaquin. She was given a prescrip tion for 10 more days of Levaquin for this purpose, and ID will follow up on her cultures to ensure t hey remain negative. AUTOMOBILE CLUB MEMBERSHIP SALES AGENT consult was obtained given her large fibroid mass in the setting of abdomin al pain. He recommends outpatient followup with AUTOMOBILE CLUB MEMBERSHIP SALES AGENT. She is referred to the [facility] for this purpose. DISPOSITION: Patient is discharged home in stable condition. FOLLOWUP: 1. Dr. Tiana Ayala, primary care provider, in 1 week to recheck her oxygen saturations. The sergo ent also needs a followup chest x-ray in 4-6 weeks to ensure resolution of her pneumonia. 2. Dr. Mel Dean, AUTOMOBILE CLUB MEMBERSHIP SALES AGENT, to further discuss management of her exophytic fibroid mass. DISCHARGE MEDICATIONS: Please see [facility] for completed outpatient medication list. New medication s on discharge include Tylenol 650 mg p.o. q.6 hours p.r.n., guaifenesin 1200 mg p.o. twice daily, ib uprofen 400 mg p.o. q.6 hours p.r.n., Levaquin 750 mg p.o. daily for 10 more days, MiraLAX 17 g p.o. daily p.r.n., and Senokot 1-2 tablets p.o. twice daily p.r.n. She is also discharged on nocturnal ox ygen at 2 L/minute and will follow up with her PCP to determine when her sats are improved, and she c an discontinue home oxygen. /[id number]/MODL
--- NOTE | 2017-01-09 09:17 | GDS ---
[f rep st] DISCHARGE SUMMARY DISCHARGE DIAGNOSES: 1. Pneumococcal bacteremia secondary to community-acquired pneumonia. 2. Community-acquired pneumonia. 3. Acute kidney injury, resolved. 4. Pelvic mass, likely fibroid. 5. Cognitive impairment. 6. Hypothyroidism. 7. Constipation. CONSULTANTS: Dr. Angie Nava, Infectious Disease; Dr. Brando Ramos DISC PAD PLATE FILLER IMAGING STUDIES/PROCEDURES: 1. Chest x-ray January 05, 2017, showed right middle lobe and right lower lobe pneumonia. 2. Pelvic ultrasound January 05, 2017, showed a large heterogeneous pelvic mass likely representing an exophytic fibroid, which corresponds to the presumed fibroid of the uterus seen back in 2006. The re was some noted mild variation between the current study and the older ultrasound, and a followup u ltrasound was recommended in 3-6 months. HISTORY OF DETAILS: Please see the history and physical dated January 05, 2017. In brief, the patie isidoro is a 67-year-old female with history of hypothyroidism, who presents to the emergency department w ith fever and abdominal pain. Workup revealed a pronounced right-sided infiltrate. The patient was admitted to the hospital for further management. HOSPITAL COURSE: The patient was admitted to the medical-surgical unit. She was initially treated w ith IV ceftriaxone and azithromycin. Blood cultures were drawn and were positive for Streptococcus p neumoniae, which was likely the organism causing her community-acquired pneumonia. She required 2 L of oxygen on admission. She was weaned down to room air, but continued to desat to the mid 80s while sleeping, and then , was discharged on home oxygen for nighttime use. Repeat blood cultu res were obtained on January 07 and remain negative to date at nearly 48 hours at the time of dischar ge. Infectious Disease consult was obtained. Her Strep pneumoniae is pansensitive and, therefore, s he will be able to complete 14 days of antibiotic therapy on oral Levaquin. She was given a prescrip tion for 10 more days of Levaquin for this purpose, and ID will follow up on her cultures to ensure t hey remain negative. ROOF TRUSS BUILDER consult was obtained given her large fibroid mass in the setting of abdomin al pain. He recommends outpatient followup with ROOF TRUSS BUILDER. She is referred to the [facility] for this purpose. DISPOSITION: Patient is discharged home in stable condition. FOLLOWUP: 1. Dr. Tiana Ayala, primary care provider, in 1 week to recheck her oxygen saturations. The sergo ent also needs a followup chest x-ray in 4-6 weeks to ensure resolution of her pneumonia. 2. Dr. Mel Dean, ROOF TRUSS BUILDER, to further discuss management of her exophytic fibroid mass. DISCHARGE MEDICATIONS: Please see [facility] for completed outpatient medication list. New medication s on discharge include Tylenol 650 mg p.o. q.6 hours p.r.n., guaifenesin 1200 mg p.o. twice daily, ib uprofen 400 mg p.o. q.6 hours p.r.n., Levaquin 750 mg p.o. daily for 10 more days, MiraLAX 17 g p.o. daily p.r.n., and Senokot 1-2 tablets p.o. twice daily p.r.n. She is also discharged on nocturnal ox ygen at 2 L/minute and will follow up with her PCP to determine when her sats are improved, and she c an discontinue home oxygen. /[id number]/MODL
[2017-01-09 09:35] VITALS: O2SAT 88
[2017-01-09] MEDS: POLYETHYLENE GLYCOL 3350 17 GM PKT PO SCH (09:35)
[2017-01-09] MEDS: SENNOSIDES/DOCUSATE SODIUM TAB PO SCH (09:36)
[2017-01-09] MEDS: guaiFENesin 600 MG TAB.ER PO SCH (09:36)
[2017-01-09] MEDS: BIOASTIN PO SCH (09:40)
[2017-01-09] MEDS: ENOXAPARIN 40 MG/0.4 ML SYR SC SCH (09:41)
[2017-01-09] MEDS: ACETAMINOPHEN 325 MG TAB PO PRN (10:05)
--- NOTE | 2017-01-09 10:14 | PDHOMEO2F ---
Home Oxygen Face to Face Home Orders: I certify that a physician or a nurse practitioner or physician's assistant professor of drama has had a [id number]-mv-[id number] encounter with this patient on the date of this order due to the diagnosis listed, which relates to the primary reason the patient requires home oxygen. Alternative treatments have been tried, or considered, and deemed ineffective. It is anticipated that supplemental oxygen will result in improvement with treatment. Home oxygen qualifying diagnosis: Pneumonia SpO2 on room air (%): 85 Frequency of home oxygen needed: continuous Home oxygen liters per minute: 2 LPM Home oxygen delivery device: nasal cannula Concentrator: Yes E-tanks for mobility and back up: No I certify that, based on these findings, the home oxygen is medically necessary for this patient for the following length of time. Length of time home oxygen needed: 1 month
--- NOTE | 2017-01-09 10:14 | PDHOMEO2F ---
Home Oxygen Face to Face Home Orders: I certify that a physician or a nurse practitioner or physician's education assistant has had a nnai-we-qxwe encounter with this patient on the date of this order due to the diagnosis listed, which relates to the primary reason the patient requires home oxygen. Alternative treatments have been tried, or considered, and deemed ineffective. It is anticipated that supplemental oxygen will result in improvement with treatment. Home oxygen qualifying diagnosis: Pneumonia SpO2 on room air (%): 85 Frequency of home oxygen needed: continuous Home oxygen liters per minute: 2 LPM Home oxygen delivery device: nasal cannula Concentrator: Yes E-tanks for mobility and back up: No I certify that, based on these findings, the home oxygen is medically necessary for this patient for the following length of time. Length of time home oxygen needed: 1 month
--- NOTE | 2017-01-09 10:14 | PDHOMEO2F ---
Home Oxygen Face to Face Home Orders: I certify that a physician or a nurse practitioner or physician's preschool assistant has had a egve-fg-pilv encounter with this patient on the date of this order due to the diagnosis listed, which relates to the primary reason the patient requires home oxygen. Alternative treatments have been tried, or considered, and deemed ineffective. It is anticipated that supplemental oxygen will result in improvement with treatment. Home oxygen qualifying diagnosis: Pneumonia SpO2 on room air (%): 85 Frequency of home oxygen needed: continuous Home oxygen liters per minute: 2 LPM Home oxygen delivery device: nasal cannula Concentrator: Yes E-tanks for mobility and back up: No I certify that, based on these findings, the home oxygen is medically necessary for this patient for the following length of time. Length of time home oxygen needed: 1 month
--- NOTE | 2017-01-09 12:52 | PDIAF ---
- Diagnosis Diagnosis: pneumonia, hypoxemia Code Status: Full Code - Medication Management Discharge Medications: Medications to Continue on Transfer Advanced Digestive Enzymes 1 cap PO BIDMEAL 01/05/17 [Last Taken 01/04/17] Calcium/Magnesium 1000/500 1 tab PO HS 01/05/17 [Last Taken 01/04/17] Doxepin HCl 75 mg PO HS 01/05/17 [Last Taken 01/04/17] Herbals/Supplements -Info Only 1 ea PO HS 01/05/17 [Last Taken 01/04/17] Integrative Digestive Enzymes 1 cap PO BIDMEAL 01/05/17 [Last Taken 01/04/17] L-Theanine 200mg 1 tab PO HS 01/05/17 [Last Taken 01/04/17] L-Tryptophan 500mg 1 tab PO HS 01/05/17 [Last Taken 01/04/17] LORazepam [Lorazepam] 0.5 mg PO HS 01/05/17 [Last Taken 01/04/17] Levothyroxine [Synthroid 100 mcg (*)] 100 mcg PO Q2D@06 01/05/17 [Last Taken 05/18] Levothyroxine [Synthroid 112 mcg (*)] 112 mcg PO Q2D@06 01/05/17 [Last Taken 06/18] Liothyronine Sodium [Cytomel 5 mcg (*)] 5 mcg PO DAILY 01/05/17 [Last Taken 06/18] Melatonin [Melatonin 3 MG (*)] 3 mg PO HS 01/05/17 [Last Taken 01/04/17] Psyllium Fiber 1 tsp PO BIDMEAL 01/05/17 [Last Taken 01/04/17] Taurine 500mg 1 tab PO HS 01/05/17 [Last Taken 01/04/17] Acetaminophen [Tylenol 325mg (*)] 650 mg PO Q4HRS PRN tab 01/09/17 [Last Taken Unknown] Ibuprofen [Motrin (*)] 400 mg PO Q6HRS PRN tab 01/09/17 [Last Taken Unknown] Polyethylene Glycol 3350 [Miralax 17 gm (*)] 17 gm PO DAILY pkt 01/09/17 [Last Taken Unknown] Sennosides/Docusate Sodium [Senokot-S] 1 - 2 tab PO BID tab 11/08/17 [Last Taken Unknown] guaiFENesin [Mucinex 600 MG (*)] 1,200 mg PO BID #30 tab.er 01/09/17 [Last Taken Unknown] levOFLOXACIN [levAQUIN (*)] 750 mg PO DAILY AT 10AM #10 tab 01/09/17 [Last Taken Unknown] Discharge Medications: Refer to the Discharge Home Medication list for PRN reason. - Orders Services needed: Home Care, Registered Nurse Home Care Face to Face: I certify that this patient was under my care and that I had the required [id number] encounter meeting the encounter requirements on the discharge day. My findings support the fact that the patient is homebound as defined in Home Care Face to Face Continued: CMS Chapter 7 Medicare Benefits Manual 30.1.1 , The condition of the patient is such that there exists a normal inability to leave home and consequently, leaving home would require a considerable and taxing effort. Diet Recommendation: no restrictions on diet - Follow Up Care Current Providers and Referrals: Tiana Ayala MD [Primary Care Provider] - As per Instructions Mel Dean MD [Medical Doctor] -
--- NOTE | 2017-01-09 13:12 | ASMTCMCOM ---
CM Note CM Note Notes: Pt is being dischraged today. CM met w/ pt for dispo planning. Pt is requesting to have HC, RN w/ [facility] to check on her periodically. Pt also inquired about non skilled HC. CM provided pt w/ a list of non skilled HC. [facility] is able to take on pt. CM provided FRANTZ Zhou w/ phone number to give report to [facility]. CM available for changes. Date Signed: 01/09/2017 01:11 PM Electronically Signed By:CADENCE Kingsley
--- NOTE | 2017-01-09 13:12 | ASMTCMCOM ---
CM Note CM Note Notes: Pt is being dischraged today. CM met w/ pt for dispo planning. Pt is requesting to have HC, RN w/ [facility] to check on her periodically. Pt also inquired about non skilled HC. CM provided pt w/ a list of non skilled HC. [facility] is able to take on pt. CM provided FRANTZ Zhou w/ phone number to give report to [facility]. CM available for changes. Date Signed: 01/09/2017 01:11 PM Electronically Signed By:CADENCE Kingsley
--- NOTE | 2017-01-09 13:12 | ASMTCMCOM ---
CM Note CM Note Notes: Pt is being dischraged today. CM met w/ pt for dispo planning. Pt is requesting to have HC, RN w/ [facility] to check on her periodically. Pt also inquired about non skilled HC. CM provided pt w/ a list of non skilled HC. [facility] is able to take on pt. CM provided FRANTZ Zhou w/ phone number to give report to [facility]. CM available for changes. Date Signed: 01/09/2017 01:11 PM Electronically Signed By:CADENCE Kingsley
--- NOTE | 2017-01-09 16:05 | ASDISCHSUM ---
Discharge Information Plan Status:Home with Home Health Medically Cleared to Leave:01/08/2017 Discharge Date:01/09/2017 01:00 PM CM D/C Disposition: ADT D/C Disposition:Home, Routine, Self-Care Projected Discharge Date:01/09/2017 12:00 AM Transportation at D/C: Discharge Delay Reason: Follow-Up Date:01/09/2017 12:00 AM Discharge Slot: Final Diagnosis: Placement Information Patient Contact Information Contact Name:CHLOE Relationship: Address:[address] City:[place] Alternate Phone: State/Zip Code:[place] [address] Email: Financial Information Financial Class:[facility] Primary Plan Desc:STEPHANIA CAZARES O OPEN ACC [facility] Primary Plan Number:[id number] Secondary Plan Desc: Secondary Plan Number: Assessment Information [facility] Progress Note CM Note CM Note Notes: Reviewed chart, spoke w/ FRANTZ Zhuo for discharge plan, pt's progress. Pt admitted for abd pain, fever, viral pneumonia. Per MD notes, pt has lg pelvic mass, likely fibroids. Pt lives with her , independently. PT/OT evals pending sec to weakness and fatigue. Discharge needs remain TBD at this time. CM will cont to follow. Current Discharge Plan: To be determined Date Signed: 01/06/2017 12:06 PM Electronically Signed By:Talisha Steiner RN [facility] CM Progress Note CM Note CM Note Notes: PT and OT are discharging pt from services. Pt will most likely be able to d/c independent when medically stable. CM available for changes. Date Signed: 01/08/2017 02:43 PM Electronically Signed By:CADENCE Kingsley [facility] Progress Note CM Note CM Note Notes: Pt is being dischraged today. CM met w/ pt for dispo planning. Pt is requesting to have HCFRANTZ w/ [facility] to check on her periodically. Pt also inquired about non skilled HC. provided pt w/ a list of non skilled HC. [facility] is able to take on pt. provided FRANTZ Zhou w/ phone number to give report to [facility]. available for changes. Date Signed: 01/09/2017 01:11 PM Electronically Signed By:CADENCE Kingsley Intervention Information
--- NOTE | 2017-01-09 16:05 | ASDISCHSUM ---
Discharge Information Plan Status:Home with Home Health Medically Cleared to Leave:01/08/2017 Discharge Date:01/09/2017 01:00 PM CM D/C Disposition: ADT D/C Disposition:Home, Routine, Self-Care Projected Discharge Date:01/09/2017 12:00 AM Transportation at D/C: Discharge Delay Reason: Follow-Up Date:01/09/2017 12:00 AM Discharge Slot: Final Diagnosis: Placement Information Patient Contact Information Contact Name:CHLOE Relationship: Address:[address] City:[place] Alternate Phone: State/Zip Code:[place] [address] Email: Financial Information Financial Class:[facility]ia [facility] Primary Plan Desc:STEPHANIA CAZARES O OPEN ACC [facility] Primary Plan Number:[id number] Secondary Plan Desc: Secondary Plan Number: Assessment Information [facility] Progress Note CM Note CM Note Notes: Reviewed chart, spoke w/ FRANTZ Zhou for discharge plan, pt's progress. Pt admitted for abd pain, fever, viral pneumonia. Per MD notes, pt has lg pelvic mass, likely fibroids. Pt lives with her , independently. PT/OT evals pending sec to weakness and fatigue. Discharge needs remain TBD at this time. CM will cont to follow. Current Discharge Plan: To be determined Date Signed: 01/06/2017 12:06 PM Electronically Signed By:Talisha Steiner RN [facility] CM Progress Note CM Note CM Note Notes: PT and OT are discharging pt from services. Pt will most likely be able to d/c independent when medically stable. CM available for changes. Date Signed: 01/08/2017 02:43 PM Electronically Signed By:CADENCE Kingsley [facility] Progress Note CM Note CM Note Notes: Pt is being dischraged today. CM met w/ pt for dispo planning. Pt is requesting to have HCFRANTZ w/ [facility] to check on her periodically. Pt also inquired about non skilled HC. provided pt w/ a list of non skilled HC. [facility] is able to take on pt. provided FRANTZ Zhou w/ phone number to give report to [facility]. available for changes. Date Signed: 01/09/2017 01:11 PM Electronically Signed By:CADENCE Kingsley Intervention Information
--- NOTE | 2017-01-09 16:05 | ASDISCHSUM ---
Discharge Information Plan Status:Home with Home Health Medically Cleared to Leave:01/08/2017 Discharge Date:01/09/2017 01:00 PM CM D/C Disposition: ADT D/C Disposition:Home, Routine, Self-Care Projected Discharge Date:01/09/2017 12:00 AM Transportation at D/C: Discharge Delay Reason: Follow-Up Date:01/09/2017 12:00 AM Discharge Slot: Final Diagnosis: Placement Information Patient Contact Information Contact Name:CHLOE Relationship: Address:[address] City:[place] Alternate Phone: State/Zip Code:[place] [address] Email: Financial Information Financial Class:[facility] Primary Plan Desc:STEPHANIA CAZARES O OPEN ACC [facility] Primary Plan Number:[id number] Secondary Plan Desc: Secondary Plan Number: Assessment Information [facility] Progress Note CM Note CM Note Notes: Reviewed chart, spoke w/ FRANTZ Zhou for discharge plan, pt's progress. Pt admitted for abd pain, fever, viral pneumonia. Per MD notes, pt has lg pelvic mass, likely fibroids. Pt lives with her , independently. PT/OT evals pending sec to weakness and fatigue. Discharge needs remain TBD at this time. CM will cont to follow. Current Discharge Plan: To be determined Date Signed: 01/06/2017 12:06 PM Electronically Signed By:Talisha Steiner RN [facility] CM Progress Note CM Note CM Note Notes: PT and OT are discharging pt from services. Pt will most likely be able to d/c independent when medically stable. CM available for changes. Date Signed: 01/08/2017 02:43 PM Electronically Signed By:CADENCE Kingsley [facility] Progress Note CM Note CM Note Notes: Pt is being dischraged today. CM met w/ pt for dispo planning. Pt is requesting to have HCFRANTZ w/ [facility] to check on her periodically. Pt also inquired about non skilled HC. provided pt w/ a list of non skilled HC. [facility] is able to take on pt. provided FRANTZ Zhou w/ phone number to give report to [facility]. available for changes. Date Signed: 01/09/2017 01:11 PM Electronically Signed By:CADENCE Kingsley Intervention Information
== END 2017-01-09 13:00 | disposition home or self-care (01) | DRG 194 ==
LOC: F3E 17:00
PROVIDERS: ADMIT Hospitalist; ATTEND Hospitalist
DX: J13 Pneumonia due to Streptococcus pneumoniae (principal); N17.9 Acute kidney failure, unspecified; R78.81 Bacteremia; D25.9 Leiomyoma of uterus, unspecified; E03.9 Hypothyroidism, unspecified; K59.00 Constipation, unspecified; G47.00 Insomnia, unspecified; E86.1 Hypovolemia
CPT/HCPCS: 92507-GN; 92523-GN; 96365; 97116-GP; 97161-GP; 97165-GO; 97535-GO; J0456; J0696; J1170; J1650; J2405

== ENCOUNTER 2017-01-24 21:07 | Inpatient (IN) | payer OTHER ==
[2017-01-24 21:38] LABS: % IMMATURE GRANULYOCYTES 0.3 % (0.0-1.1); ABSOLUTE IMMATURE GRANULOCYTES 0.02 10^3/uL (0.00-0.10); ADD DIFF? NO; ADD MORPH? NO; ADD SCAN? NO; ATYPICAL LYMPHOCYTE FLAG 10 (0-99); FRAGMENT RBC FLAG 0 (0-99); HEMATOCRIT 38.7 % (38.0-47.0); HEMOGLOBIN 12.9 g/dL (12.6-16.3); LEFT SHIFT FLG 0 (0-99); LIPEMIA HEMOLYSIS FLAG 80 (0-99); MEAN CELL HEMOGLOBIN 31.3 pg (27.9-34.1); MEAN CELL HEMOGLOBIN CONCENTR. 33.3 g/dL (32.4-36.7); MEAN CELL VOLUME 93.9 fL (81.5-99.8); MEAN PLATELET VOLUME 8.6 fL (8.7-11.7); PLATELET CLUMPS FLAG 10 (0-99); PLATELET COUNT 320 10^3/uL (150-400); RED BLOOD CELL COUNT 4.12 10^6/uL (4.18-5.33); RED CELL DISTRIBUTION WIDTH 14.5 % (11.5-15.2)
[2017-01-24 21:53] LABS: ANION GAP 12 mEq/L (8-16); CALCIUM 9.6 mg/dL (8.5-10.4); CARBON DIOXIDE 27 mEq/l (22-31); CHLORIDE 102 mEq/L (97-110); CREATININE 0.8 mg/dL (0.6-1.0); GLOMERULAR FILTRATION RATE > 60; GLUCOSE 96 mg/dL (70-100); POTASSIUM 4.5 mEq/L (3.5-5.2); SODIUM 141 mEq/L (134-144)
--- NOTE | 2017-01-24 21:57 | EDPHY ---
H & P Time Seen by Provider: 01/24/17 21:17 HPI/ROS: CHIEF COMPLAINT: Weakness, short of breath HISTORY OF PRESENT ILLNESS: 67-year-old female presents to the emergency department by private vehicle complaining of weakness, fever and feeling short of breath. The patient was admitted to the hospital on January 05 with right lower lobe and right middle lobe pneumonia. She was discharged after 5 days and was taking Levaquin. She finished this medication approximately 1 week ago. She does not feel that she improved greatly with this. She still feels short of breath. She still feels overall weak. She was having significant pain in her right lower lobe and right side of her chest, however now she is having pain in her left lower lobe. No abdominal pain or vomiting. No recent travel. No known ill contacts. REVIEW OF SYSTEMS: Constitutional: No fever, no chills. Eyes: No double or blurry vision. ENT: No sore throat. Respiratory: Cough, shortness of breath Cardiac: Chest pain as above. Gastrointestinal: No abdominal pain, vomiting or diarrhea. Genitourinary: No dysuria. Musculoskeletal: No neck or back pain. Skin: No rashes. Neurological: No headache. Past Medical/Surgical History: Pneumonia 01/03/2017 Social History: Smoking Status: Never smoked Physical Exam: General Appearance: Alert, no distress. 84% on room air. Heart rate 106, 9073 , temperature 37.7degrees Eyes: Pupils equal and round. Extraocular motions are all intact. ENT: Mouth: Mucous membranes moist. Respiratory: Decreased breath sounds lower lobe especially on the left side. Decreased breath sounds the right middle and lower lobe as well. He no respiratory distress. Cardiovascular: Regular rate and rhythm. Gastrointestinal: Abdomen is soft and nontender, no masses, no rebound or guarding, bowel sounds normal. Neurological: Alert and oriented x 3, cranial nerves II through XII grossly intact Skin: Warm and dry, no rashes. Musculoskeletal: Nontender to palpate along the cervical, thoracic or lumbar spine. Neck is supple. Extremities: Full range of motion and no peripheral edema. Psychiatric: Patient is oriented X 3, there is no agitation. Constitutional: Initial Vital Signs Temperature (C) 37.7 C 01/24/17 21:12 Heart Rate 106 H 01/24/17 21:12 Respiratory Rate 18 01/24/17 21:12 Blood Pressure 91/73 L 01/24/17 21:12 O2 Sat (%) 84 L 01/24/17 21:12 O2 Delivery Mode Nasal Cannula O2 (L/minute) 2 Allergies/Adverse Reactions: ampicillin [Ampicillin] Allergy (Intermediate, Verified 04/27/16 02:35) Hives lactose Allergy (Verified 04/27/16 02:35) Home Medications: Medication Instructions Recorded Advanced Digestive Enzymes 1 cap PO BIDMEAL 01/05/17 Calcium/Magnesium 1000/500 1 tab PO HS 01/05/17 Doxepin HCl 75 mg PO HS 01/05/17 Herbals/Supplements -Info Only 1 ea PO HS 01/05/17 Integrative Digestive Enzymes 1 cap PO BIDMEAL 01/05/17 L-Theanine 200mg 1 tab PO HS 01/05/17 L-Tryptophan 500mg 1 tab PO HS 01/05/17 LORazepam [Lorazepam] 0.5 mg PO HS 01/05/17 Levothyroxine [Synthroid 100 mcg 100 mcg PO Q2D@06 01/05/17 (*)] Levothyroxine [Synthroid 112 mcg 112 mcg PO Q2D@06 01/05/17 (*)] Liothyronine Sodium [Cytomel 5 mcg 5 mcg PO DAILY 01/05/17 (*)] Melatonin [Melatonin 3 MG (*)] 3 mg PO HS 01/05/17 Psyllium Fiber 1 tsp PO BIDMEAL 01/05/17 Taurine 500mg 1 tab PO HS 01/05/17 Acetaminophen [Tylenol 325mg (*)] 650 mg PO Q4HRS PRN tab 01/09/17 Ibuprofen [Motrin (*)] 400 mg PO Q6HRS PRN tab 01/09/17 Polyethylene Glycol 3350 [Miralax 17 gm PO DAILY pkt 01/09/17 17 gm (*)] Sennosides/Docusate Sodium 1 - 2 tab PO BID tab 01/09/17 [Senokot-S] guaiFENesin [Mucinex 600 MG (*)] 1,200 mg PO BID #30 tab.er 01/09/17 Medical Decision Making - Diagnostics Imaging Results: Imaging Impressions Chest X-Ray 01/24/17 21:31 Impression: 1. Interim development of a large left pleural effusion, with compressive atelectasis and/or infiltrate in the left mid-lower lung zones not excluded. 2. Persistent though improving subsegmental atelectasis versus infiltrate in the posterior right lower lobe, compared to 01/05/2017. Chest/Thorax CTA 01/24/17 22:01 Impression: 1. There is no CT evidence of pulmonary artery thromboembolic disease. 2. Interim development of a large left pleural effusion with areas of compressive atelectasis and/or infiltrate in the left lower lobe, and some residual subsegmental atelectasis versus infiltrate in the right lower lobe. 3. Interval development of a [id number] simple pericardial effusion 01/03. Correlation with echocardiography may be of benefit. Findings were discussed with DIANA LUTZ PA-C at 22:48, on 01/24/2017. Imaging: Discussed imaging studies w/ call center team leader Radiologist, I viewed and interpreted images myself ED Course/Re-evaluation: 67-year-old female presents to the emergency department with ongoing weakness and shortness of breath. The patient was admitted to the hospital on 01/05/2017 with pneumococcal bacteremia with right middle lobe and right lower lobe pneumonia. She was initially treated with ceftriaxone and azithromycin. She was discharged and started on Levaquin 750 mg and she took this for 10 days as prescribed. Patient was placed on 2 L nasal cannula oxygen to keep her O2 saturations 95%. Chest x-ray was ordered by the nurse which reveals significant consolidation to the left lower lobe. The spill some consolidation noted in the right lower lobe although that has improved since 01/03/2017. CT pulmonary angiogram reveals no evidence of pulmonary embolism. The patient has a large left pleural effusion which appears simple. There is also a mild to moderate sized pericardial effusion which also appears simple. Cannot exclude new left lower lobe pneumonia. This was reported to me by Dr. Ndiaye. The patient will be admitted to the hospitalist. An EKG has been performed. Echocardiogram will be done in the morning by the hospitalist. Patient agrees with admission to the hospital. Patient was kept on 2 L nasal cannula oxygen. She is comfortable. Laboratory studies reveal normal white blood cell count. No signs of anemia. Chemistries are unremarkable. Her lactate is normal. Differential Diagnosis: Shortness of breath including but not limited to pulmonary infectious process, COPD, asthma, pulmonary embolus and congestive heart failure. Weakness including but not limited to electrolyte abnormality, depression, anxiety, CVA, spinal cord abnormality, and infectious causes. - Data Points Laboratory Results: Laboratory Results 01/24/17 21:25 01/24/17 21:25 01/24/17 01/24/17 01/24/17 21:25 21:25 21:25 WBC 6.72 10^3/uL 10^3/uL (3.80-9.50) RBC 4.12 10^6/uL L 10^6/uL (4.18-5.33) Hgb 12.9 g/dL g/dL (12.6-16.3) Hct 38.7 % % (38.0-47.0) MCV 93.9 fL fL (81.5-99.8) MCH 31.3 pg pg (27.9-34.1) MCHC 33.3 g/dL g/dL (32.4-36.7) RDW 14.5 % % (11.5-15.2) Plt Count 320 10^3/uL 10^3/uL (150-400) MPV 8.6 fL L fL (8.7-11.7) Neut % (Auto) 62.8 % % (39.3-74.2) Lymph % (Auto) 24.1 % % (15.0-45.0) Graham % (Auto) 10.3 % % (4.5-13.0) Eos % (Auto) 1.6 % % (0.6-7.6) Baso % (Auto) 0.9 % % (0.3-1.7) Nucleat RBC Rel Count 0.0 % % (0.0-0.2) Absolute Neuts (auto) 4.22 10^3/uL 10^3/uL (1.70-6.50) Absolute Lymphs (auto) 1.62 10^3/uL 10^3/uL (1.00-3.00) Absolute Monos (auto) 0.69 10^3/uL 10^3/uL (0.30-0.80) Absolute Eos (auto) 0.11 10^3/uL 10^3/uL (0.03-0.40) Absolute Basos (auto) 0.06 10^3/uL 10^3/uL (0.02-0.10) Absolute Nucleated RBC 0.00 10^3/uL 10^3/uL (0-0.01) Immature Gran % 0.3 % % (0.0-1.1) Immature Gran # 0.02 10^3/uL 10^3/uL (0.00-0.10) VBG Lactic Acid Sodium 141 mEq/L mEq/L (134-144) Potassium 4.5 mEq/L mEq/L (3.5-5.2) Chloride 102 mEq/L mEq/L (97-110) Carbon Dioxide 27 mEq/l mEq/l (22-31) Anion Gap 12 mEq/L mEq/L (8-16) BUN 17 mg/dL mg/dL (7-23) Creatinine 0.8 mg/dL mg/dL (0.6-1.0) Estimated GFR > 60 Glucose 96 mg/dL mg/dL (70-100) Calcium 9.6 mg/dL mg/dL (8.5-10.4) Lactate Dehydrogenase 440 IU/L IU/L (313-618) 01/24/17 21:25 WBC RBC Hgb Hct MCV MCH MCHC RDW Plt Count MPV Neut % (Auto) Lymph % (Auto) Graham % (Auto) Eos % (Auto) Baso % (Auto) Nucleat RBC Rel Count Absolute Neuts (auto) Absolute Lymphs (auto) Absolute Monos (auto) Absolute Eos (auto) Absolute Basos (auto) Absolute Nucleated RBC Immature Gran % Immature Gran # VBG Lactic Acid 1.0 mmol/L mmol/L (0.7-2.1) Sodium Potassium Chloride Carbon Dioxide Anion Gap BUN Creatinine Estimated GFR Glucose Calcium Lactate Dehydrogenase Departure - Departure Disposition: [facility] Inpatient Acute Clinical Impression: Pleural effusion on left, Hypoxia, Pericardial effusion Condition: Fair
[2017-01-24] MEDS ORDERED: IOPAMIDOL (ISOVUE 370) 100 ML BTL IV ONE (22:04)
[2017-01-24] MEDS ORDERED: ONDANSETRON DISINTEGRATING 4 MG TAB PO PRN (22:59)
[2017-01-24] MEDS ORDERED: ONDANSETRON 4 MG/2 ML VIAL IVP PRN (22:59)
--- NOTE | 2017-01-24 23:02 | CPEKG ---
Heart Rate: 88 RR Interval: 682 P-R Interval: 172 QRSD Interval: 68 QT Interval: 348 QTC Interval: 421 P [place]: 34 QRS [place]: 38 T Wave [place]: 48 EKG Severity - BORDERLINE ECG - EKG Impression: SINUS RHYTHM EKG Impression: PROBABLE LEFT ATRIAL ABNORMALITY EKG Impression: LOW VOLTAGE THROUGHOUT Electronically Signed By: Stanley Nieves 24-Jan-2017 23:06:02
[2017-01-24 23:23] LABS: LACTATE DEHYDROGENASE 440 IU/L (313-618)
[2017-01-24] MEDS ORDERED: DOXEPIN HCL 25 MG CAP PO PRN (23:42)
[2017-01-24] MEDS ORDERED: MELATONIN 3 MG TAB PO PRN (23:43)
[2017-01-24] MEDS ORDERED: LORazepam 0.5 MG TAB PO PRN (23:43)
--- NOTE | 2017-01-24 23:47 | PDGENHP ---
History and Physical - Chief Complaint Shortness of breath - History of Present Illness 67 yo F w/ hypothyroid and recent admission for streptococcal pneumonia and bacteremia presents with shortness of breath. Patient was discharged from the hospital 01/09 to finish a 14 day course of oral levofloxacin for treatment of streptococcal pneumonia and bacteremia. Since discharge she reports that she has not felt like she has improved back to baseline. She continues to experience fatigue, cough, and more recently left sided chest pain with deep inspiration. Additionally, she noted a fever of 102 at home. She denies rash, joint pains, or sick contacts. In the ED CTPE was negative for PE but notable for new, large L sided pleural effusion as well as new pericardial effusion. She was also mildly hypoxic. History Information - Allergies/Home Medication List Allergies/Adverse Reactions: ampicillin [Ampicillin] Allergy (Intermediate, Verified 04/27/16 02:35) Hives lactose Allergy (Verified 04/27/16 02:35) Home Medications: Advanced Digestive Enzymes 1 cap PO BIDMEAL 01/05/17 [Last Taken 01/04/17] Calcium/Magnesium 1000/500 1 tab PO HS 01/05/17 [Last Taken 01/04/17] Doxepin HCl 75 mg PO HS 01/05/17 [Last Taken 01/04/17] Herbals/Supplements -Info Only 1 ea PO HS 01/05/17 [Last Taken 01/04/17] Integrative Digestive Enzymes 1 cap PO BIDMEAL 01/05/17 [Last Taken 01/04/17] L-Theanine 200mg 1 tab PO HS 01/05/17 [Last Taken 01/04/17] L-Tryptophan 500mg 1 tab PO HS 01/05/17 [Last Taken 01/04/17] LORazepam [Lorazepam] 0.5 mg PO HS 01/05/17 [Last Taken 01/04/17] Levothyroxine [Synthroid 100 mcg (*)] 100 mcg PO Q2D@01/05/17 [Last Taken 05/18] Levothyroxine [Synthroid 112 mcg (*)] 112 mcg PO Q2D@06 01/05/17 [Last Taken 06/18] Liothyronine Sodium [Cytomel 5 mcg (*)] 5 mcg PO DAILY 01/05/17 [Last Taken 06/18] Melatonin [Melatonin 3 MG (*)] 3 mg PO HS 01/05/17 [Last Taken 01/04/17] Psyllium Fiber 1 tsp PO BIDMEAL 01/05/17 [Last Taken 01/04/17] Taurine 500mg 1 tab PO HS 01/05/17 [Last Taken 01/04/17] I have personally reviewed and updated: family history, medical history - Past Medical History Additional medical history: Hypothyroid - Family History Additional family history: Denies family hx of autoimmune disease - Social History Smoking Status: Never smoked Review of Systems Review of Systems: ROS: 10pt was reviewed & negative except for what was stated in HPI & below Physical Exam Physical Exam: Temp Pulse Resp BP Pulse Ox 37.7 C 88 18 116/60 94 01/24/17 21:12 01/24/17 22:55 01/24/17 22:55 01/24/17 22:55 01/24/17 22:55 Constitutional: no apparent distress, not in pain Eyes: PERRL, EOMI Ears, Nose, Mouth, Throat: moist mucous membranes, no oral mucosal ulcers Cardiovascular: regular rate and rhythym, no murmur, rub, or gallop Respiratory: no respiratory distress, reduced air movement (L sided reduced breath sounds), dullness to percussion Gastrointestinal: normoactive bowel sounds, soft, non-tender abdomen Skin: warm, normal color Musculoskeletal: full muscle strength, no muscle tenderness Neurologic: AAOx3, CN II-XII Intact Psychiatric: interacting appropriately, not anxious Lab Data & Imaging Review 01/24/17 21:25 01/24/17 21:25 WBC 6.72 10^3/uL (3.80-9.50) 01/24/17 21:25 RBC 4.12 10^6/uL (4.18-5.33) L 01/24/17 21:25 Hgb 12.9 g/dL (12.6-16.3) 01/24/17 21:25 Hct 38.7 % (38.0-47.0) 01/24/17 21:25 MCV 93.9 fL (81.5-99.8) 01/24/17 21:25 MCH 31.3 pg (27.9-34.1) 01/24/17 21:25 MCHC 33.3 g/dL (32.4-36.7) 01/24/17: RDW 14.5 % (11.5-15.2) 01/24/17: Plt Count 320 10^3/uL (150-400) 01/24/17 21: MPV 8.6 fL (8.7-11.7) L 01/24/17: Neut % (Auto) 62.8 % (39.3-74.2) 01/24/17: Lymph % (Auto) 24.1 % (15.0-45.0) 01/24/17: [place] % (Auto) 10.3 % (4.5-13.0) 01/24/17: Eos % (Auto) 1.6 % (0.6-7.6) 01/24/17: Baso % (Auto) 0.9 % (0.3-1.7) 01/24/17: Nucleat RBC Rel Count 0.0 % (0.0-0.2) 01/24/17: Absolute Neuts (auto) 4.22 10^3/uL (1.70-6.50) 01/24/17 21: Absolute Lymphs (auto) 1.62 10^3/uL (1.00-3.00) 01/24/17: Absolute Monos (auto) 0.69 10^3/uL (0.30-0.80) 01/24/17: Absolute Eos (auto) 0.11 10^3/uL (0.03-0.40) 01/24/17: Absolute Basos (auto) 0.06 10^3/uL (0.02-0.10) 01/24/17: Absolute Nucleated RBC 0.00 10^3/uL (0-0.01) 01/24/17: Immature Gran % 0.3 % (0.0-1.1) 01/24/17: Immature Gran # 0.02 10^3/uL (0.00-0.10) 01/24/17: VBG Lactic Acid 1.0 mmol/L (0.7-2.1) 01/24/17: Sodium 141 mEq/L (134-144) 01/24/17 21:25 Potassium 4.5 mEq/L (3.5-5.2) 01/24/17 21:25 Chloride 102 mEq/L (97-110) 01/24/17 21:25 Carbon Dioxide 27 mEq/l (22-31) 01/24/17 21:25 Anion Gap 12 mEq/L (8-16) 01/24/17 21:25 BUN 17 mg/dL (7-23) 01/24/17 21:25 Creatinine 0.8 mg/dL (0.6-1.0) 01/24/17 21:25 Estimated GFR > 60 01/24/17 21:25 Glucose 96 mg/dL (70-100) 01/24/17 21:25 Calcium 9.6 mg/dL (8.5-10.4) 01/24/17 21:25 Lactate Dehydrogenase 440 IU/L (313-618) 01/24/17 21:25 Imaging Review: CTPE without embolism but notable for new, large L sided pleural effusion and small to moderate pericardial effusion. Visualized and Interpreted EKG results: Yes EKG Interpretation: Positive for: normal sinsus rhythm, other (Low voltage) Assessment & Plan Assessment: 67 yo F w/ hypothyroid and recent admission for pneumococcal pneumonia and bacteremia presents with new, large L-sided pleural effusion and small to moderate pericardial effusion. Plan: 1. L sided pleural effusion - Newly developed since discharge on 01/09; appears fairly simple on CT. Interestingly her streptococcal pneumonia was right-sided. It is possible this is related to inflammation from episode of bacteremia. Other considerations include drug-induced, viral infection, autoimmune disease, hypothyroid related, and malignancy noting known, large pelvic mass. - Will observe without antibiotics noting currently afebrile with normal WBC - Repeat blood cultures - Obtain thoracentesis(diagnostic and therapeutic) and send for usual studies including cytology - Will check respiratory PCR and MALA, RF, CCP for basic auto-immune screen - Evaluate cardiac function with TTE 2. [place]-cardial effusion - Likely from same process driving above. Hemodynamically stable; will further evaluate with TTE. 3. AHRF - Mild, requiring only 2 L/min via NC. Most likely related to compressive atelectasis from pleural effusion. 4. Hypothyroid - TSH, T3, T4 all WNL in early January so will not recheck. Continue LTX. Diet - NPO pending thoracentesis Ppx - SCDs Code - Full Dispo - Admit to observation status
[2017-01-25 04:48] LABS: % IMMATURE GRANULYOCYTES 0.2 % (0.0-1.1); ABSOLUTE IMMATURE GRANULOCYTES 0.01 10^3/uL (0.00-0.10); ADD DIFF? NO; ADD MORPH? NO; ADD SCAN? NO; ATYPICAL LYMPHOCYTE FLAG 30 (0-99); FRAGMENT RBC FLAG 0 (0-99); HEMATOCRIT 37.3 % (38.0-47.0); HEMOGLOBIN 12.3 g/dL (12.6-16.3); LEFT SHIFT FLG 0 (0-99); LIPEMIA HEMOLYSIS FLAG 80 (0-99); MEAN CELL HEMOGLOBIN 31.3 pg (27.9-34.1); MEAN CELL VOLUME 94.9 fL (81.5-99.8); MEAN PLATELET VOLUME 8.9 fL (8.7-11.7); PLATELET CLUMPS FLAG 10 (0-99); PLATELET COUNT 300 10^3/uL (150-400); RED BLOOD CELL COUNT 3.93 10^6/uL (4.18-5.33); RED CELL DISTRIBUTION WIDTH 14.4 % (11.5-15.2)
[2017-01-25 04:49] LABS: INR 1.08 (0.83-1.16); PROTIME(PATIENT) 13.9 SEC (12.0-15.0)
[2017-01-25 04:50] LABS: APTT 44.5 SEC (23.0-38.0)
[2017-01-25 04:58] LABS: ANION GAP 10 mEq/L (8-16); CALCIUM 9.3 mg/dL (8.5-10.4); CARBON DIOXIDE 30 mEq/l (22-31); CHLORIDE 101 mEq/L (97-110); CREATININE 0.8 mg/dL (0.6-1.0); GLOMERULAR FILTRATION RATE > 60; GLUCOSE 94 mg/dL (70-100); POTASSIUM 4.5 mEq/L (3.5-5.2); SODIUM 141 mEq/L (134-144)
[2017-01-25] MEDS ORDERED: LIDOCAINE 1% 300 MG/30 ML SDV ONE (07:55)
--- NOTE | 2017-01-25 09:51 | ASMTCMCOM ---
CM Note CM Note Notes: 01/25/2017 Case Management Note Reviewed chart. Pt d/c independent from hospital on 01/09. There are not PT or OT evals ordered at this time. No case management d/c needs identified d/t pt age, marital status and activity levels prior to admission. Case Management d/c poc: anticipating home independent with family support when medically stable. Case Management available if needs change. Date Signed: 01/25/2017 09:51 AM Electronically Signed By:Priyanka Amaya RN
[2017-01-25] MEDS: ACETAMINOPHEN 325 MG TAB PO PRN ×2 (12:45→18:14)
--- NOTE | 2017-01-25 13:02 | ECHO ---
[email or web address] [address] [address] Main: [phone] Fax: Transthoracic Echocardiogram Name: NIDHI WATTERS MR#: [id number] Study Date: 01/25/2017 Study Time: 08:16 AM Date of : 1950 Age: 67 year(s) Height: 162.6 cm (64 in.) Weight: 50.8 kg (112 lb.) BSA: 1.53 m2 Gender: Female Examination: Echo Indication: Pericardial Effusion Image Quality: Contrast: Requested by: Zachary Cisneros BP: / Heart Rate: Rhythm: Indication: Pericardial Effusion Procedure Staff Fuel Cell Designer: Kathie Schnedier Physician: Robert Sanchez Requesting Provider: Conclusions: Normal size left ventricle. Normal global systolic LV function. EF is 72 %. Trivial to mild mitral regurgitation. Mild tricuspid regurgitation is present. The pulmonary artery pressure is normal. Trivial pericardial effusion. Left side pleural effusion. Measurements: Chambers Valvular Assessment AV/MV Valvular Assessment TV/PV Normal Normal Normal Name Value Range Name Value Range Name Value Range Ao Angely (MM): 3.0 cm (2.2 cm-3.7 AV Vmax: 1.14 m/s (1 m/s-1.7 TR Vmax: 2.36 mm/s ( - ) cm) m/s) TR PGmax: 22 mmHg ( - ) IVSd (2D): 0.7 cm (0.6 cm-1.1 AV maxP mmHg ( - ) syst. PAP: 27 mmHg ( - ) cm) MV E Vmax: 0.88 m/s ( - ) LVDd (2D): 4.2 cm (3.9 cm-5.3 MV A Vmax: 0.53 m/s ( - ) cm) MV E/A: 1.66 ( - ) LVDs (2D): 2.2 cm (2.1 cm-4 cm) LVPWd (2D): 0.3 cm ( - ) LVEF (MOD4): 72 % (>=55 %) Continued Measurements: Chambers Valvular Assessment AV/MV Valvular Assessment TV/PV Name Value Name Value Name Value LADs: 3.4 cm MV E' Septal: 0.07 m/s CVP (est.): 5 mmHg Patient: NIDHI WATTERS Study Date: 01/25/2017 Page 1 of 2 08:16 AM LADs Lon.0 cm MV E/E' Septal: 11.90 LA Area: 17.5 cm2 MV E/E' Lateral: 10.50 Findings: Left Ventricle: Normal size left ventricle. Normal global systolic LV function. EF is 72 %. Right Ventricle: Normal size right ventricle. Left Atrium: The left atrium is normal in size. Right Atrium: The right atrium is normal in size. Mitral Valve: The mitral valve is normal in appearance. Trivial to mild mitral regurgitation. Aortic Valve: The aortic valve is tri-leaflet. Tricuspid Valve: The tricuspid valve appears normal. Mild tricuspid regurgitation is present. The pulmonary artery pressure is normal. Pulmonic Valve: The pulmonic valve is normal in appearance. Trivial pulmonic valve regurgitation. Pericardium: Trivial pericardial effusion. Left side pleural effusion. (No Signature Object) Patient: NIDHI WATTERS Study Date: 01/25/2017 Page 2 of 2 08:16 AM [id number]
[2017-01-25 13:28] LABS: LD, PLEURAL FLUID 377 IU/L
[2017-01-25] MEDS ORDERED: HYDROmorphone HCL/NS/PF 0.4 MG/2 ML SYR IVP PRN (13:37)
[2017-01-25] MEDS: traMADol 50 MG TAB PO PRN ×2 (13:52→20:53)
--- NOTE | 2017-01-25 14:55 | ASMTCMCOM ---
CM Note CM Note Notes: 01/25/2017 Case Management Note Phone call from [facility] ([id number]) that pt is open with them are receiving RN support through [facility]. Case Management d/c poc: Resume [facility] RN services at d/c. Date Signed: 01/25/2017 02:55 PM Electronically Signed By:Priyanka Aamya RN
--- NOTE | 2017-01-25 15:37 | HOSPPROG ---
Hospitalist Progress Note Assessment/Plan: * New large left pleural effusion s/p thoracentesis -d/w - pulmonary to consult -? parapneumonic - but PNA was on right -serologies pending * Pericardial effusion -small by ECHO * Recent Strep pneumo PNA + bacteremia -s/p 14 days Levaquin * Post procedural pain -suspect reinflation of inflamed lung -IV dilaudid prn Subjective: Severe pain post thoracentesis, radiating to shoulder Objective: Vital Signs Temp Pulse Resp BP Pulse Ox 37.2 C 68 20 87/55 L 95 01/25/17 11:23 01/25/17 15:26 01/25/17 15:26 01/25/17 15:26 01/25/17 15:26 01/24/17 01/25/17 01/26/17 05:59 05:59 05:59 Intake Total 120 Balance 120 PT 13.9 SEC (12.0-15.0) 01/25/17 04:16 INR 1.08 (0.83-1.16) 01/25/17 04:16 CXR post thora - no PTX CXR viewed pre-thora - large left pleural effusion - Physical Exam Constitutional: no apparent distress, appears nourished, not in pain Cardiovascular: regular rate and rhythym, no murmur, rub, or gallop Respiratory: no respiratory distress, no rales or rhonchi, clear to auscultation Gastrointestinal: normoactive bowel sounds, soft, non-tender abdomen, no palpable masses Skin: no rashes or abrasions, no fluctuance, no induration Neurologic: AAOx3, sensation intact bilaterally Psychiatric: interacting appropriately, not anxious, not encephalopathic, thought process linear ICD10 Worksheet Patient Problems: Problems Problem Status Onset Hypoxia Acute Pericardial effusion Acute Pleural effusion on left Acute Ataxia Acute Hypotension Acute Pneumonia Acute
--- NOTE | 2017-01-25 15:52 | PDMN ---
Medical Necessity Medical necessity: Pt meets Inpt criteria per MD as of 01/25/17 and MCG M-540 Pleural Effusion (est. LOS >2 MN for eval/mgmt of new large L pleural effusion with severe pain s/p thoracentesis; pericardial effusion; hx recent strep pneumo pna and bacteremia per MD progress note).
[2017-01-25] MEDS: [UNRECOGNIZED DRUG - OTHER] PO SCH (17:07)
[2017-01-25] MEDS: [UNRECOGNIZED DRUG - OTHER] PO SCH (17:08)
[2017-01-25] MEDS: PRESERVISION AREDS2 FORMULA EYE VIT 1 EACH PO SCH (17:08)
[2017-01-25] MEDS: DOCUSATE SODIUM 100 MG CAP PO PRN (20:53)
[2017-01-25] MEDS ORDERED: DOXEPIN HCL 75 MG PO SCH (21:00)
[2017-01-25] MEDS ORDERED: DOXEPIN HCL 50 MG CAP PO SCH (21:00)
[2017-01-25] MEDS: LORazepam 0.5 MG TAB PO SCH (21:50)
[2017-01-25] MEDS: MELATONIN 3 MG TAB PO SCH (21:50)
[2017-01-25] MEDS: DOXEPIN HCL 25 MG CAP PO SCH (21:50)
[2017-01-25] MEDS: CAL MAG PO SCH (21:51)
[2017-01-25] MEDS: TAURINE PO SCH (21:52)
[2017-01-25] MEDS: THEANINE PO SCH (21:52)
[2017-01-25] MEDS: TRYPTOPHAN 500 MG PO SCH (21:52)
[2017-01-26] MEDS: LEVOTHYROXINE 100 MCG TAB PO SCH (05:10)
[2017-01-26] MEDS: ACETAMINOPHEN 325 MG TAB PO PRN ×3 (07:40→20:58)
[2017-01-26 07:44] LABS: % IMMATURE GRANULYOCYTES 0.2 % (0.0-1.1); ABSOLUTE IMMATURE GRANULOCYTES 0.01 10^3/uL (0.00-0.10); ADD DIFF? NO; ADD MORPH? NO; ADD SCAN? NO; ATYPICAL LYMPHOCYTE FLAG 0 (0-99); FRAGMENT RBC FLAG 0 (0-99); HEMATOCRIT 34.1 % (38.0-47.0); HEMOGLOBIN 11.2 g/dL (12.6-16.3); LEFT SHIFT FLG 0 (0-99); LIPEMIA HEMOLYSIS FLAG 80 (0-99); MEAN CELL HEMOGLOBIN 30.7 pg (27.9-34.1); MEAN CELL HEMOGLOBIN CONCENTR. 32.8 g/dL (32.4-36.7); MEAN CELL VOLUME 93.4 fL (81.5-99.8); PLATELET CLUMPS FLAG 0 (0-99); PLATELET COUNT 241 10^3/uL (150-400); RED BLOOD CELL COUNT 3.65 10^6/uL (4.18-5.33); RED CELL DISTRIBUTION WIDTH 14.3 % (11.5-15.2)
[2017-01-26] MEDS: LIOTHYRONINE SODIUM 5 MCG TAB PO SCH (08:12)
[2017-01-26] MEDS: [UNRECOGNIZED DRUG - OTHER] PO SCH ×3 (08:12→16:14)
[2017-01-26] MEDS: PRESERVISION AREDS2 FORMULA EYE VIT 1 EACH PO SCH ×2 (08:12→21:01)
[2017-01-26] MEDS: [UNRECOGNIZED DRUG - OTHER] PO SCH ×2 (08:14→16:13)
[2017-01-26] MEDS: traMADol 50 MG TAB PO PRN (12:04)
--- NOTE | 2017-01-26 16:05 | HOSPPROG ---
Hospitalist Progress Note Assessment/Plan: * New large left pleural effusion s/p thoracentesis - exudative -? parapneumonic - but PNA was on right -rapid reaccumulation of effusion on CXR today -d/w Dr. Armendariz - recommends restart abx -restart IV ceftriaxone -recheck CXR in am * Pericardial effusion -small by ECHO * Recent Strep pneumo PNA + bacteremia -s/p 14 days Levaquin * Pleurisy post thoracentesis -try IV toradol Subjective: Still with severe pleuritic pain left Objective: Vital Signs Temp Pulse Resp BP Pulse Ox 37.0 C 72 17 115/60 96 01/26/17 14:51 01/26/17 14:51 01/26/17 14:51 01/26/17 14:51 01/26/17 14:51 Laboratory Results 01/26/17 07:35 01/25/17 01/26/17 01/27/17 05:59 05:59 05:59 Intake Total 1170 Balance 1170 PT 13.9 SEC (12.0-15.0) 01/25/17 04:16 INR 1.08 (0.83-1.16) 01/25/17 04:16 CXR viewed, my personal interpretation is - reaccumulation of effusion - Physical Exam Constitutional: no apparent distress, appears nourished, not in pain Cardiovascular: regular rate and rhythym, no murmur, rub, or gallop Respiratory: no respiratory distress, no rales or rhonchi, clear to auscultation Gastrointestinal: normoactive bowel sounds, soft, non-tender abdomen, no palpable masses Skin: no rashes or abrasions, no fluctuance, no induration Neurologic: AAOx3, sensation intact bilaterally Psychiatric: interacting appropriately, not anxious, not encephalopathic, thought process linear ICD10 Worksheet Patient Problems: Problems Problem Status Onset Hypoxia Acute Pericardial effusion Acute Pleural effusion on left Acute Ataxia Acute Hypotension Acute Pneumonia Acute
[2017-01-26] MEDS: KETOROLAC 30 MG/1 ML SDV IVP PRN (18:00)
--- NOTE | 2017-01-26 20:44 | GCON ---
[f rep st] CONSULTATION PULMONARY CONSULTATION DATE OF CONSULTATION: 01/26/2017 REASON FOR CONSULTATION: New left pleural effusion. HISTORY: The patient is a pleasant 67-year-old who presented to the emergency department with fatigu e, cough, and some left-sided pleuritic type chest pain. She was also experiencing fevers at home to as high as 102. Recent history is remarkable for pneumococcal pneumonia. She was admitted on 01/05 with a right lower lobe infiltrate. Blood cultures grew Strep pneumoniae. She was treated appropri ately and sent home on Levaquin after 4 days of hospitalization. A followup chest x-ray was not done prior to discharge. During admission, she was seen by Infectious Disease. She was discharged on Le vaquin to complete a total of a 14-day course. Followup with Infectious Disease was recommended. Fo llowing discharge, she had persistent fatigue, cough, and chest pain. When she initially presented w ith her pneumococcal pneumonia, she had some chest pain on the right. Prior to this admission, chest pain was present on the left. Following admission, she was not started on antibiotics. White blood cell count was not elevated on admission, and she has not been febrile. She has been mildly hypoxem ic and has been kept on 2 L of oxygen. Admission chest x-ray showed a large left-sided pleural effus ion. This was tapped yesterday. This is borderline exudative by LDH and probably by total protein. White blood cell count was 4360 with 75% neutrophils. Ph was normal as was glucose. G stain was ne gative for bacteria. Cultures are pending. Following the thoracentesis, she had some increased left -sided pleuritic pain secondary to fluid removal. She continues to have a dry cough. She is not deborah nging up sputum. She has remained afebrile. She has no joint symptoms. There is no history of rheumatologic disease. Rheumatoid factor is negat mike. MALA and inflammatory markers are pending. PAST MEDICAL HISTORY: Largely unremarkable. She has hypothyroidism, on replacement, some depression and anxiety. She reports stress over the last 2 years. MEDICATIONS: On admission included vitamins and supplements, p.r.n. albuterol given during her last hospitalization, lorazepam at night, levothyroxine, doxepin, and p.r.n. medications. SOCIAL HISTORY: The patient is , no children. Her dog recently . Her father within the last year, and she was involved in a lawsuit. FAMILY HISTORY: Noncontributory. REVIEW OF SYSTEMS: A 10-point review of systems is negative except as outlined above. She has no hi story of heart disease, no history of thromboembolic disease, renal disease, malignancy, etc. There is no history of liver disease, alcohol abuse, or tobacco. She does report a couple of pneumonias in the distant past and occasional bronchitis. There is no history of asthma. PHYSICAL EXAMINATION: GENERAL: Reveals a pleasant woman who is sitting comfortably in bed. VITAL S IGNS: She is on 2 L of oxygen with saturations of 94%. She is afebrile. Blood pressure 90/50, hear t rate 65 and regular. HEENT: Unremarkable for lymphadenopathy or thyromegaly. There is no jugular venous distention, no pharyngitis. CHEST: Reveals decreased breath sounds and dullness on the left side. The right side is clear. There is no central congestion. No pleural rub could be appreciate d; however, with deep breaths, she will have a dry hacky cough. HEART: Regular rate and rhythm. Th ere are no significant murmurs, no gallops. ABDOMEN: Soft, nontender. There is no organomegaly. E XTREMITIES: Without edema, cords, or tenderness. NEUROLOGIC: Intact/nonfocal. Cognition is intact . DATABASE: CT scans were reviewed. The CT scan on admission showed a large left-sided plural effusio n without obvious infiltrate or mass. There was compressive atelectasis. She had a CT scan of the a bdomen done in early January just prior to her admission for pneumococcal pneumonia. The bases were clear at that time. There were no infiltrates, no effusions. Chest x-ray post thoracentesis showed incomplete evacuation of pleural fluid. Today's comparison sabina m shows increasing pleural fluid again. LABORATORY: As outlined above. Cytologies are pending. Current white blood cell count is 4900, hem atocrit 34, down from 38. Platelets are normal. Venous lactate and chemistries are normal. ASSESSMENT/RECOMMENDATIONS: Left pleural effusion. This is exudative with a white blood cell count of over 4000 with predominant neutrophils. There is no evidence of an empyema per se; however, I christina pect this represents a parapneumonic effusion, possibly from ongoing pneumonia. However, she was juan david quately treated for her recent pneumococcal pneumonia. There is no obvious evidence of a small locul ated empyema separate from the pleural fluid tapped. Other etiologies seem less likely. Malignancy seems distinctly unlikely as her effusion was not present 3 weeks ago, and there were no abnormalitie s of the left chest. There is no evidence of thromboembolic disease. A viral process with pleurodyn ia could be present, but respiratory panel is negative. Treatment with antibiotics at this point in time would be recommended. A BNP will be checked; however, I do not believe that this has anything t o do with congestive heart failure or fluid retention. Repeat thoracentesis may be needed if her eff usion continues to reaccumulate. I will follow the patient with you. Further plans and recommendations will be made based on her progress over the next 12-24 hours and on the results of pending studies. /[id number]/MODL
[2017-01-26] MEDS: DOCUSATE SODIUM 100 MG CAP PO PRN (20:58)
[2017-01-26] MEDS: LORazepam 0.5 MG TAB PO SCH (21:01)
[2017-01-26] MEDS: DOXEPIN HCL 25 MG CAP PO SCH (21:01)
[2017-01-26] MEDS: MELATONIN 3 MG TAB PO SCH (21:01)
[2017-01-26] MEDS: CAL MAG PO SCH (21:04)
[2017-01-26] MEDS: THEANINE PO SCH (21:04)
[2017-01-26] MEDS: TAURINE PO SCH (21:05)
[2017-01-26] MEDS: TRYPTOPHAN 500 MG PO SCH (21:06)
[2017-01-27] MEDS: LEVOTHYROXINE 112 MCG TAB PO SCH (04:33)
[2017-01-27] MEDS: LIOTHYRONINE SODIUM 5 MCG TAB PO SCH (06:02)
[2017-01-27] MEDS: [UNRECOGNIZED DRUG - OTHER] PO SCH ×3 (06:38→17:14)
[2017-01-27] MEDS: [UNRECOGNIZED DRUG - OTHER] PO SCH ×2 (06:39→17:14)
[2017-01-27] MEDS: PRESERVISION AREDS2 FORMULA EYE VIT 1 EACH PO SCH ×2 (06:40→21:49)
[2017-01-27] MEDS: ACETAMINOPHEN 325 MG TAB PO PRN ×3 (08:17→21:50)
[2017-01-27 08:42] LABS: % IMMATURE GRANULYOCYTES 0.2 % (0.0-1.1); ABSOLUTE IMMATURE GRANULOCYTES 0.01 10^3/uL (0.00-0.10); ADD DIFF? NO; ADD MORPH? NO; ADD SCAN? NO; ATYPICAL LYMPHOCYTE FLAG 0 (0-99); FRAGMENT RBC FLAG 0 (0-99); HEMOGLOBIN 10.8 g/dL (12.6-16.3); LEFT SHIFT FLG 0 (0-99); LIPEMIA HEMOLYSIS FLAG 80 (0-99); MEAN CELL HEMOGLOBIN CONCENTR. 32.7 g/dL (32.4-36.7); MEAN CELL VOLUME 94.8 fL (81.5-99.8); PLATELET CLUMPS FLAG 10 (0-99); PLATELET COUNT 243 10^3/uL (150-400); RED BLOOD CELL COUNT 3.48 10^6/uL (4.18-5.33)
[2017-01-27 09:07] LABS: ALANINE AMINOTRANSFERASE 43 IU/L (9-52); ALBUMIN 2.8 g/dL (3.5-5.0); ALKALINE PHOSPHATASE 98 IU/L (38-126); ANION GAP 9 mEq/L (8-16); ASPARTATE AMINOTRANSFERASE 31 IU/L (14-46); BILIRUBIN,TOTAL 0.2 mg/dL (0.1-1.4); BILIRUBIN-UNCONJUGATED 0.2 mg/dL (0.0-1.1); C-REACTIVE PROTEIN 84.6 mg/L (<10.0); CALCIUM 8.7 mg/dL (8.5-10.4); CARBON DIOXIDE 29 mEq/l (22-31); CHLORIDE 98 mEq/L (97-110); CREATININE 0.8 mg/dL (0.6-1.0); GLOMERULAR FILTRATION RATE > 60; GLUCOSE 92 mg/dL (70-100); POTASSIUM 4.4 mEq/L (3.5-5.2); SODIUM 136 mEq/L (134-144); TOTAL PROTEIN 5.4 g/dL (6.3-8.2)
[2017-01-27 09:32] LABS: SEDIMENTATION RATE 60 MM/HR (0-30)
[2017-01-27] MEDS ORDERED: PSEUDOEPHEDRINE HCL 30 MG TAB PO ONE (11:02)
[2017-01-27] MEDS ORDERED: SODIUM CL NASAL 45 ML BTL EACHNARE PRN (11:03)
[2017-01-27] MEDS: FLUNISOLIDE NASAL 200 SPRAYS/25 ML MDI NS SCH (11:30)
[2017-01-27] MEDS: KETOROLAC 30 MG/1 ML SDV IVP PRN ×2 (11:37→20:39)
--- NOTE | 2017-01-27 16:46 | HOSPPROG ---
Hospitalist Progress Note Assessment/Plan: * New large left pleural effusion s/p thoracentesis - exudative -? parapneumonic - but recent PNA was on right -rapid reaccumulation of effusion post thoracentesis -restart IV ceftriaxone - reconsult ID - d/w Dr. Lozada -perhaps a few days IV abx then reattempt thoracentesis * Pericardial effusion -small by ECHO * Recent Strep pneumo PNA + bacteremia -s/p 14 days Levaquin * Pleurisy post thoracentesis -improving Subjective: Doesn't feel well. Left pleuritic pain. Very runny nose Objective: Vital Signs Temp Pulse Resp BP Pulse Ox 36.6 C 71 18 87/48 L 97 01/27/17 16:00 01/27/17 16:00 01/27/17 16:00 01/27/17 16:00 01/27/17 16:00 Laboratory Results 01/27/17 08:31 01/27/17 08:31 01/26/17 01/27/17 01/28/17 05:59 05:59 05:59 Intake Total 1170 52 52 Balance 1170 52 52 PT 13.9 SEC (12.0-15.0) 01/25/17 04:16 INR 1.08 (0.83-1.16) 01/25/17 04:16 CXR viewed, my personal interpretation is - left effusion still moderate to large - Physical Exam Constitutional: no apparent distress, appears nourished, not in pain Cardiovascular: regular rate and rhythym, no murmur, rub, or gallop Respiratory: no respiratory distress, no rales or rhonchi, clear to auscultation , reduced air movement (left base) Gastrointestinal: normoactive bowel sounds, soft, non-tender abdomen, no palpable masses Skin: no rashes or abrasions, no fluctuance, no induration Neurologic: AAOx3, sensation intact bilaterally Psychiatric: interacting appropriately, not anxious, not encephalopathic, thought process linear ICD10 Worksheet Patient Problems: Problems Problem Status Onset Hypoxia Acute Pericardial effusion Acute Pleural effusion on left Acute Ataxia Acute Hypotension Acute Pneumonia Acute
[2017-01-27] MEDS ORDERED: PSEUDOEPHEDRINE HCL 30 MG TAB PO PRN (17:00)
--- NOTE | 2017-01-27 18:10 | SOAPPROG ---
SOAP Progress Note Assessment/Plan: Assessment: Pleural effusion. Mildly exudative by chemistries with approximately 4000 white blood cells, neutrophil predominant. Gm stain negative. Cultures negative to date. I feel that this likely represents pneumonia and a parapneumonic effusion. This has reaccumulated somewhat since her thoracentesis 2 days ago. There is no evidence of loculation or empyema on CT scan. She did not have a pleural effusion when she was admitted 2-[address] scan of the abdomen showed no pleural effusion and no infiltrates several days prior to her previous admission. Recent pneumococcal pneumonia. Hospitalized at [facility] treated with Levaquin. Infiltrate present on the right on admission. No follow-up imaging was done prior to discharge. Plan: Continue ceftriaxone and medication for chest pain. Repeat chest x-ray tomorrow. Encourage deep breathing/IS. May need repeat thoracentesis in the next day or to if her effusion enlarges or persists Discussed with patient, hospitalist, infectious Disease. Subjective: Feels a bit better today. Still has a hacky cough when she tries to breathe deeply, some left-sided chest discomfort that is difficult for her to describe Objective: Vital Signs Temp Pulse Resp BP Pulse Ox 36.6 C 71 18 87/48 L 97 01/27/17 16:00 01/27/17 16:00 01/27/17 16:00 01/27/17 16:00 01/27/17 16:00 Laboratory Results 01/27/17 08:31 01/27/17 08:31 01/26/17 01/27/17 01/28/17 05:59 05:59 05:59 Intake Total 1170 52 472 Balance 1170 52 472 PT 13.9 SEC (12.0-15.0) 01/25/17 04:16 INR 1.08 (0.83-1.16) 01/25/17 04:16 Laboratory Tests 01/25/17 01/27/17 04:16 08:31 Total Bilirubin 0.2 AST 31 ALT 43 C-Reactive Protein 84.6 H NT-Pro-B Natriuret Pep 220 H Albumin 2.8 L Rheum Factor Semi-Quant < 8.6 CXR: No significant change in the left-sided pleural effusion. There is a small area of infiltrate or atelectasis at the right base as well Physical Exam - Physical Exam General Appearance: alert, no apparent distress, thin, other (Sitting up in bed) EENT: PERRL/EOMI, other (Nasal cannula in place at 2 L) Neck: normal inspection Respiratory: lungs clear (Anteriorly), decreased breath sounds (At both bases, more so on the left. Some dullness at the left base, subtle.), rales (Few rales at the right base), No rhonchi, No wheezing Cardiac/Chest: regular rate, rhythm Abdomen: normal bowel sounds, non-tender, soft Skin: normal color, warm/dry Extremities: No pedal edema Neuro/Psych: no motor/sensory deficits, No cognition abnormalities ICD10 Worksheet Patient Problems: Problems Problem Status Onset Hypotension Acute Ataxia Acute Pneumonia Acute Pleural effusion on left Acute Hypoxia Acute Pericardial effusion Acute
[2017-01-27] MEDS ORDERED: IPRATROPIUM/ALBUTEROL 3 ML DEYVIAL IH PRN (18:18)
--- NOTE | 2017-01-27 21:22 | GCON ---
[f rep st] CONSULTATION INPATIENT INFECTIOUS DISEASE CONSULTATION REFERRING PHYSICIAN: Socorro Hsu MD REASON FOR REFERRAL: Readmission after pneumococcal pneumonia with a left parapneumonic effusion. HISTORY OF PRESENT ILLNESS: Patient is a 67-year-old female who was admitted from 01/05 to 7, with Streptococcus pneumoniae bacteremia and right-sided predominant pneumonia. The patient had a pansensitive streptococcal isolate and was discharged to complete a 2-week course of Levaquin. The patient presented back to [facility] on 01/24/2017 secondary to weakness and shortness of breath. Also complaining of pain in the left chest. Imaging at that point reveale d a moderate in size pleural effusion on the left side. Patient had the pleural effusion sampled and was begun empirically on IV ceftriaxone yesterday. The pleural fluid showed only 4360 white cells, with 2786 red cells. Mild shift to the neutrophils in that white blood cell count. Cultures have no t grown anything so far from that fluid sampling. The remainder of the values showed a normal pH. P atient currently is nontoxic and resting in her hospital bed. She was initially relieved by the drai nage of fluid on 01/24; however, recent repeat chest x-rays have shown that it has reaccumulated to a good degree. PAST MEDICAL HISTORY: Hypothyroidism. PAST SURGICAL HISTORY: None noted. ANTIBIOTICS: Ceftriaxone. ALLERGIES: Patient is allergic to ampicillin and lactose. SOCIAL HISTORY: No tobacco or alcohol use noted. FAMILY HISTORY: Reviewed but noncontributory. REVIEW OF SYSTEMS: Other than that detailed above in History of Present Illness, a comprehensive 10- system review is negative. PHYSICAL EXAMINATION: VITAL SIGNS: Temperature maximum 37.2, temperature current 37.1. Heart rate 68, respiratory rate 16, blood pressure 104/55. GENERAL: The patient is a well-formed, well-nourish ed, older female in no acute distress. She is not toxic in appearance. She is alert and oriented x3 . She has a pleasant demeanor. HEENT: Normocephalic for age. Atraumatic. No scleral icterus. No oral lesion or drainage from the nares. Eyes: Lids and conjunctivae are within normal limits. Pup ils are equal and round bilaterally. NECK: Supple. No meningismus. LUNGS: Clear to auscultation on the right. Decreased breath sounds in the base on the left. HEART: Regular rate and rhythm. No significant peripheral edema. SKIN: Warm and dry to the touch. No rash or lesion. MUSCULOSKELETA L: No muscle belly tenderness is noted. No joint line effusion or arthritis is seen. NEUROLOGIC: Cranial nerves 2-12 seem to be intact. Peripheral sensation seems intact in extremities. LABORATORY DATA: The patient has a CBC dated 01/27/2017 that shows a white blood cell count of 4.74, hemoglobin of 10.8, hematocrit of 33.0, and a platelet count of 243. Differential is within normal limits. Serum chemistries on 01/27 are all within normal limits. Creatinine 0.8. C-reactive protei n is elevated at 84.6. Albumin is decreased at 2.8. Pleural fluid values from 01/25/2017 show a pH of 7.4, white blood cell count of 4360, red blood cell count of 2786, 75% neutrophils. Pleural LDH i s 377, pleural glucose is 90. ASSESSMENT: Left-sided pleural effusion in patient with recent streptococcal pneumoniae infection. The patient had an initial chest x-ray during her Streptococcus pneumoniae admission on 01/05/2017 bu t did not have a followup scan. The chest x-ray initially for her Streptococcus pneumoniae disease s howed predominantly right-sided disease. It is odd that she returns with a left-sided pleural effusi on. The effusion itself does not appear to be complex or infected. She has, however, reaccumulated significantly in the last few days. I agree with re-accessing the fluid collection and draining it a gain. The ceftriaxone empirically is probably not needed, as I do not see an indication at this poin t, but we will continue with it for the next 24 hours while we do more evaluation. PLAN: 1. Continue ceftriaxone for now. 2. Follow fluid culture and re-tap fluid collection tomorrow. /[id number]/MODL
[2017-01-27] MEDS: DOCUSATE SODIUM 100 MG CAP PO PRN (21:49)
[2017-01-27] MEDS: MELATONIN 3 MG TAB PO SCH (21:49)
[2017-01-27] MEDS: LORazepam 0.5 MG TAB PO SCH (21:50)
[2017-01-27] MEDS: DOXEPIN HCL 25 MG CAP PO SCH (21:51)
[2017-01-27] MEDS: THEANINE PO SCH (21:53)
[2017-01-27] MEDS: CAL MAG PO SCH (21:54)
[2017-01-27] MEDS: TAURINE PO SCH (21:54)
[2017-01-27] MEDS: TRYPTOPHAN 500 MG PO SCH (21:54)
[2017-01-28] MEDS: FLUNISOLIDE NASAL 200 SPRAYS/25 ML MDI NS SCH ×3 (00:54→21:09)
[2017-01-28] MEDS: LEVOTHYROXINE 100 MCG TAB PO SCH (06:26)
[2017-01-28] MEDS: LIOTHYRONINE SODIUM 5 MCG TAB PO SCH (06:26)
[2017-01-28] MEDS: [UNRECOGNIZED DRUG - OTHER] PO SCH ×2 (07:32→17:31)
[2017-01-28] MEDS: [UNRECOGNIZED DRUG - OTHER] PO SCH ×3 (07:32→17:32)
[2017-01-28] MEDS: PRESERVISION AREDS2 FORMULA EYE VIT 1 EACH PO SCH ×2 (07:33→21:08)
[2017-01-28 08:23] LABS: % IMMATURE GRANULYOCYTES 0.5 % (0.0-1.1); ABSOLUTE IMMATURE GRANULOCYTES 0.02 10^3/uL (0.00-0.10); ADD DIFF? NO; ADD MORPH? NO; ADD SCAN? NO; ATYPICAL LYMPHOCYTE FLAG 40 (0-99); FRAGMENT RBC FLAG 0 (0-99); HEMOGLOBIN 11.3 g/dL (12.6-16.3); LEFT SHIFT FLG 0 (0-99); LIPEMIA HEMOLYSIS FLAG 80 (0-99); MEAN CELL HEMOGLOBIN 30.4 pg (27.9-34.1); MEAN CELL HEMOGLOBIN CONCENTR. 32.3 g/dL (32.4-36.7); MEAN CELL VOLUME 94.1 fL (81.5-99.8); MEAN PLATELET VOLUME 9.1 fL (8.7-11.7); PLATELET CLUMPS FLAG 0 (0-99); PLATELET COUNT 268 10^3/uL (150-400); RED BLOOD CELL COUNT 3.72 10^6/uL (4.18-5.33); RED CELL DISTRIBUTION WIDTH 13.7 % (11.5-15.2)
[2017-01-28] MEDS: ACETAMINOPHEN 325 MG TAB PO PRN ×3 (09:31→21:35)
--- NOTE | 2017-01-28 14:05 | ASMTCMCOM ---
CM Note CM Note Notes: 01/28/2017 Case Management Note Met w/pt. Pt agreeable to restarting [facility] RN upon discharge. Provided updates to [facility]. Pt spouse Scarlett ([phone] )has postponed a business trip to [place] until Feb.08. He will be overseas for 2 to 2.5 weeks. Pt has no family in the area. Case Management d/c poc: home with resumption of [facility] RN when medically stable. Case Management to follow. Date Signed: 01/28/2017 02:05 PM Electronically Signed By:Priyanka Amaya RN
--- NOTE | 2017-01-28 14:20 | PCMIDPN ---
Assessment/Plan: Assessment/Plan: * Exudative left pleural effusion status post right-sided pneumonia due to Streptococcus pneumoniae: Cultures of pleural fluid are negative. Unclear etiology given on left side of chest rather than right-side of chest with initial pneumonia although possible had bilateral involvement not appreciated on initial chest x-ray. Most likely inflammatory rather than directly infectious. Will therefore discontinue ceftriaxone and observe off antibiotics. If fails to resolve, may need repeat thoracentesis to further assess. 01/28/17 14:16 01/28/17 14:19 Subjective: Feels better with less pleuritic chest pain on left. Occasional cough present. Objective: Vital Signs Temp Pulse Resp BP Pulse Ox 37.1 C 71 18 108/60 95 01/28/17 11:22 01/28/17 11:22 01/28/17 11:22 01/28/17 11:22 01/28/17 11:22 Laboratory Results 01/28/17 08:05 01/27/17 08:31 01/27/17 01/28/17 01/29/17 05:59 05:59 05:59 Intake Total 52 1341 Balance 52 1341 ESR 60 MM/HR (0-30) H 01/27/17 08:31 C-Reactive Protein 84.6 mg/L (<10.0) H 01/27/17 08:31 Ceftriaxone # 3 Pleural fluid cultures no growth Blood cultures x2 no growth - Physical Exam General Appearance: alert, no apparent distress EENT: No scleral icterus, No conjunctival petechiae Respiratory: other (Decreased breath sounds both based) Cardiac/Chest: regular rate, rhythm, No systolic murmur Extremities: No inflammation Abdomen: non-tender, No distended ICD10 Worksheet Patient Problems: Problems Problem Status Onset Hypoxia Acute Pericardial effusion Acute Pleural effusion on left Acute Ataxia Acute Hypotension Acute Pneumonia Acute
[2017-01-28] MEDS: KETOROLAC 30 MG/1 ML SDV IVP PRN (15:25)
[2017-01-28] MEDS ORDERED: LIDOCAINE 1% 300 MG/30 ML SDV ONE (16:07)
--- NOTE | 2017-01-28 16:08 | HOSPPROG ---
Hospitalist Progress Note Assessment/Plan: 67 yo F w recent pneumococcal pneumonia now w L sided pleural effusion New large left pleural effusion s/p thoracentesis - exudative -? parapneumonic - but recent PNA was on right -rapid reaccumulation of effusion post thoracentesis dc abx - reconsult ID - d/w Dr. mistry -perhaps a few days IV abx then reattempt thoracentesis Pericardial effusion -small by ECHO Recent Strep pneumo PNA + bacteremia -s/p 14 days Levaquin Pleurisy post thoracentesis -improving doing well w toradol proph: LMWH starting tomorrow if staying Subjective: cxr w enlarging pleural effusion (interp by me). case d/w Dr. Mistry Objective: Vital Signs Temp Pulse Resp BP Pulse Ox 36.7 C 72 20 98/52 L 92 01/28/17 15:20 01/28/17 15:20 01/28/17 15:20 01/28/17 15:20 01/28/17 15:20 Laboratory Results 01/28/17 08:05 01/27/17 08:31 01/27/17 01/28/17 01/29/17 05:59 05:59 05:59 Intake Total 52 1341 Balance 52 1341 PT 13.9 SEC (12.0-15.0) 01/25/17 04:16 INR 1.08 (0.83-1.16) 01/25/17 04:16 - Physical Exam Constitutional: no apparent distress, appears nourished Eyes: PERRL Ears, Nose, Mouth, Throat: moist mucous membranes, hearing normal Cardiovascular: regular rate and rhythym, no murmur, rub, or gallop Respiratory: no respiratory distress, other (decreased ) Gastrointestinal: normoactive bowel sounds, soft, non-tender abdomen Genitourinary: No bassett in urethra Skin: warm, normal color Musculoskeletal: full muscle strength Neurologic: AAOx3, sensation intact bilaterally Psychiatric: interacting appropriately ICD10 Worksheet Patient Problems: Problems Problem Status Onset Hypoxia Acute Pericardial effusion Acute Pleural effusion on left Acute Ataxia Acute Hypotension Acute Pneumonia Acute
--- NOTE | 2017-01-28 16:22 | PDINTPN ---
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 CTA ruled out PE but showed large LEFT pleural effusion Tap revealed non-specific exudate and symptomatically improved but etiology remains unclear. Also had mild pericardial effusion of uncertain significance. * Pleural effusion- etiology unclear. No malignant cells noted on cytology, but recent abdominal CT showed large heterogenous pelvic mass presumed to be uterine fibroids. Will clarify with remainder of team and consider CA-125 testing. Consider MALA screen * Hypoxemia- near baseline since she only uses nocturnal O2. Her dsats were 90% on RA at rest during my visit today * Subjective: feels well without sob Objective: Vital Signs Temp Pulse Resp BP Pulse Ox 36.7 C 72 20 98/52 L 92 01/28/17 15:20 01/28/17 15:20 01/28/17 15:20 01/28/17 15:20 01/28/17 15:20 Laboratory Results 01/28/17 08:05 01/27/17 08:31 01/27/17 01/28/17 01/29/17 05:59 05:59 05:59 Intake Total 52 1341 Balance 52 1341 PT 13.9 SEC (12.0-15.0) 01/25/17 04:16 INR 1.08 (0.83-1.16) 01/25/17 04:16 Physical Exam - Physical Exam General Appearance: WD/WN, alert, no apparent distress EENT: PERRL/EOMI Neck: supple Respiratory: lungs clear, normal breath sounds, No respiratory distress Cardiac/Chest: regular rate, rhythm, No edema Abdomen: non-tender, soft, No distended Skin: normal color, warm/dry, No cyanosis Lymphatic: no adenopathy Extremities: No pedal edema Neuro/Psych: alert, normal mood/affect, oriented x 3 ICD10 Worksheet Patient Problems: Problems Problem Status Onset Hypoxia Acute Pericardial effusion Acute Pleural effusion on left Acute Ataxia Acute Hypotension Acute Pneumonia Acute
[2017-01-28] MEDS: DOXEPIN HCL 25 MG CAP PO SCH (21:08)
[2017-01-28] MEDS: CAL MAG PO SCH (21:09)
[2017-01-28] MEDS: MELATONIN 3 MG TAB PO SCH (21:09)
[2017-01-28] MEDS: LORazepam 0.5 MG TAB PO SCH (21:09)
[2017-01-28] MEDS: TRYPTOPHAN 500 MG PO SCH (21:12)
[2017-01-28] MEDS: THEANINE PO SCH (21:13)
[2017-01-28] MEDS: TAURINE PO SCH (21:14)
[2017-01-29] MEDS: LEVOTHYROXINE 112 MCG TAB PO SCH (06:22)
[2017-01-29] MEDS: ACETAMINOPHEN 325 MG TAB PO PRN ×2 (06:27→19:53)
[2017-01-29] MEDS: traMADol 50 MG TAB PO PRN ×3 (06:27→19:52)
[2017-01-29] MEDS: LIOTHYRONINE SODIUM 5 MCG TAB PO SCH (06:31)
[2017-01-29] MEDS: [UNRECOGNIZED DRUG - OTHER] PO SCH ×3 (07:40→16:32)
[2017-01-29] MEDS: PRESERVISION AREDS2 FORMULA EYE VIT 1 EACH PO SCH ×2 (07:41→21:50)
[2017-01-29] MEDS: [UNRECOGNIZED DRUG - OTHER] PO SCH ×2 (07:41→16:32)
[2017-01-29] MEDS: FLUNISOLIDE NASAL 200 SPRAYS/25 ML MDI NS SCH ×2 (07:42→21:55)
--- NOTE | 2017-01-29 13:50 | PDINTPN ---
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 CTA ruled out PE but showed large LEFT pleural effusion Tap revealed non-specific exudate and symptomatically improved but etiology remains unclear. Also had mild pericardial effusion of uncertain significance. * Pleural effusion- etiology remains unclear, and review of films during this admission show fairly rapid re-accumulation. Does not seem directly related to recent PNA, and pelvic mass workup in progress (likely benign fibroids). Will check non-contrast CT today to look for clues and agree with CA-125. F/U MALA sent yesterday. If remains stable without rapid re-accumulation, could consider outpatient management. Otherwise she could be a candidate for more aggressive management such as pleur-x or pleurodesis. * Hypoxemia- near baseline since she only uses nocturnal O2. Her sats were 90% on RA at rest during my visit today * 01/29/17 13:47 Subjective: feels ok after tap last pm. C/o mild pleuritic chest pain Objective: Vital Signs Temp Pulse Resp BP Pulse Ox 36.7 C 56 L 20 92/51 L 99 01/29/17 11:08 01/29/17 11:08 01/29/17 11:08 01/29/17 11:08 01/29/17 11:08 Laboratory Results 01/28/17 08:05 01/27/17 08:31 01/28/17 01/29/17 01/30/17 05:59 05:59 05:59 Intake Total 1341 1450 Output Total 1200 Balance 1341 250 PT 13.9 SEC (12.0-15.0) 01/25/17 04:16 INR 1.08 (0.83-1.16) 01/25/17 04:16 Physical Exam - Physical Exam General Appearance: WD/WN, alert, no apparent distress EENT: PERRL/EOMI Neck: supple Respiratory: chest non-tender, lungs clear, normal breath sounds, No respiratory distress Cardiac/Chest: regular rate, rhythm, No edema Abdomen: normal bowel sounds, non-tender, soft, No distended Skin: normal color, warm/dry, No cyanosis Lymphatic: no adenopathy Extremities: No pedal edema Neuro/Psych: alert, normal mood/affect, oriented x 3 ICD10 Worksheet Patient Problems: Problems Problem Status Onset Hypoxia Acute Pericardial effusion Acute Pleural effusion on left Acute Ataxia Acute Hypotension Acute Pneumonia Acute
--- NOTE | 2017-01-29 13:55 | HOSPPROG ---
Hospitalist Progress Note Assessment/Plan: 67 yo F w recent pneumococcal pneumonia now w L sided pleural effusion New large left pleural effusion s/p thoracentesis - exudative -? parapneumonic - but recent PNA was on right -rapid reaccumulation of effusion post thoracentesis no PE dc abx -chest CT todat check ca 125 given pelvic mass Pericardial effusion -small by ECHO Recent Strep pneumo PNA + bacteremia -s/p 14 days Levaquin Pleurisy post thoracentesis -improving doing well w toradol proph: LMWH starting tomorrow if staying Subjective: case d/w dr smith. repeat cxr w no ptx and essentially no pleural fluid (interp by me) Objective: Vital Signs Temp Pulse Resp BP Pulse Ox 36.7 C 56 L 20 92/51 L 99 01/29/17 11:08 01/29/17 11:08 01/29/17 11:08 01/29/17 11:08 01/29/17 11:08 Laboratory Results 01/28/17 08:05 01/27/17 08:31 01/28/17 01/29/17 01/30/17 05:59 05:59 05:59 Intake Total 1341 1450 Output Total 1200 Balance 1341 250 PT 13.9 SEC (12.0-15.0) 01/25/17 04:16 INR 1.08 (0.83-1.16) 01/25/17 04:16 - Physical Exam Constitutional: no apparent distress, appears nourished Eyes: PERRL, anicteric sclera Ears, Nose, Mouth, Throat: moist mucous membranes, hearing normal, no oral mucosal ulcers Cardiovascular: regular rate and rhythym, no murmur, rub, or gallop Respiratory: no respiratory distress, no rales or rhonchi Gastrointestinal: normoactive bowel sounds, soft, non-tender abdomen Genitourinary: no bladder fullness, No bassett in urethra Skin: warm, normal color Musculoskeletal: full muscle strength Neurologic: AAOx3 Psychiatric: interacting appropriately ICD10 Worksheet Patient Problems: Problems Problem Status Onset Hypoxia Acute Pericardial effusion Acute Pleural effusion on left Acute Ataxia Acute Hypotension Acute Pneumonia Acute
[2017-01-29] MEDS: LIDOCAINE 5% 1 EA PATCH TD SCH (14:13)
[2017-01-29] MEDS: ENOXAPARIN 30 MG/0.3 ML SYR SC SCH (14:14)
--- NOTE | 2017-01-29 16:03 | PCMIDPN ---
Assessment/Plan: Assessment/Plan: * Exudative left pleural effusion status post right-sided pneumonia due to Streptococcus pneumoniae: Cultures of pleural fluid remain negative. Unclear etiology and usual that pneumonia was right-sided while effusion is left-sided. Patient to have repeat CT scan of chest to see if this provides additional information regarding potential etiologies. Will continue observation off antibiotics as suspect effusion is unlikely infectious in etiology. 01/29/17 16:01 Subjective: Patient feels better post thoracentesis yesterday. No significant pleuritic chest pain or cough. Does have some pain where needle insertion performed. Objective: Vital Signs Temp Pulse Resp BP Pulse Ox 36.9 C 91 14 90/58 L 90 L 01/29/17 15:14 01/29/17 15:14 01/29/17 15:14 01/29/17 15:14 01/29/17 15:14 Laboratory Results 01/28/17 08:05 01/27/17 08:31 01/28/17 01/29/17 01/30/17 05:59 05:59 05:59 Intake Total 1341 1450 Output Total 1200 300 Balance 1341 250 -300 ESR 60 MM/HR (0-30) H 01/27/17 08:31 C-Reactive Protein 84.6 mg/L (<10.0) H 01/27/17 08:31 No antibiotics Pleural fluid cultures no growth Blood cultures x2 no growth - Physical Exam General Appearance: alert, no apparent distress Respiratory: other (Decreased breath sounds left base) Cardiac/Chest: regular rate, rhythm, No systolic murmur Skin: No embolic lesions ICD10 Worksheet Patient Problems: Problems Problem Status Onset Hypoxia Acute Pericardial effusion Acute Pleural effusion on left Acute Ataxia Acute Hypotension Acute Pneumonia Acute
[2017-01-29] MEDS ORDERED: PATCH REMOVAL 1 EA PATCH TD SCH (21:00)
[2017-01-29] MEDS: TRYPTOPHAN 500 MG PO SCH (21:51)
[2017-01-29] MEDS: DOXEPIN HCL 25 MG CAP PO SCH (21:52)
[2017-01-29] MEDS: CAL MAG PO SCH (21:53)
[2017-01-29] MEDS: MELATONIN 3 MG TAB PO SCH (21:53)
[2017-01-29] MEDS: LORazepam 0.5 MG TAB PO SCH (21:53)
[2017-01-29] MEDS: TAURINE PO SCH (21:54)
[2017-01-29] MEDS: THEANINE PO SCH (21:54)
[2017-01-30] MEDS: LIOTHYRONINE SODIUM 5 MCG TAB PO SCH ×2 (05:51→07:57)
[2017-01-30] MEDS: LEVOTHYROXINE 100 MCG TAB PO SCH (05:51)
[2017-01-30 05:53] VITALS: TEMP 98.8
[2017-01-30] MEDS: PRESERVISION AREDS2 FORMULA EYE VIT 1 EACH PO SCH (07:57)
[2017-01-30] MEDS: ENOXAPARIN 30 MG/0.3 ML SYR SC SCH (07:57)
[2017-01-30] MEDS: LIDOCAINE 5% 1 EA PATCH TD SCH (07:59)
[2017-01-30] MEDS: [UNRECOGNIZED DRUG - OTHER] PO SCH (08:00)
[2017-01-30] MEDS: [UNRECOGNIZED DRUG - OTHER] PO SCH ×2 (08:00→11:27)
[2017-01-30] MEDS: FLUNISOLIDE NASAL 200 SPRAYS/25 ML MDI NS SCH (08:37)
[2017-01-30 11:26] VITALS: BP 92/53; PULSE 69; RESP 19
[2017-01-30] MEDS: ACETAMINOPHEN 325 MG TAB PO PRN (13:52)
--- NOTE | 2017-01-30 13:57 | PCMIDPN ---
Assessment/Plan: Assessment: Recurrent left pleural effusion. On the heels of her recent Streptococcus pneumoniae infection. Reaccumulation of the effusion is more consistent with a non infectious etiology. Agree with strategy of workup of pelvic mass as a possible cause of the effusion. At this point no antibiotics are ongoing. We will sign off the patient at this time. If future concerns arise please call again. Plan: 1. No antibiotic recommendations. 2. Call with future questions. 01/30/17 13:54 Subjective: Patient is resting in her hospital bed. She is curious about a lot of questions to do with non infectious causes of her effusion. She also has questions about her pelvic mass. Objective: No antibiotics Vital Signs Temp Pulse Resp BP Pulse Ox 37.1 C 69 19 92/53 L 97 01/30/17 11:25 01/30/17 11:25 01/30/17 11:25 01/30/17 11:25 01/30/17 11:25 Laboratory Results 01/28/17 08:05 01/27/17 08:31 01/29/17 01/30/17 01/31/17 05:59 05:59 05:59 Intake Total 1450 300 Output Total 1200 3300 Balance 250 -3000 ESR 60 MM/HR (0-30) H 01/27/17 08:31 C-Reactive Protein 84.6 mg/L (<10.0) H 01/27/17 08:31 - Physical Exam General Appearance: WD/WN, alert, no apparent distress, non-toxic Cardiac/Chest: regular rate, rhythm, No tachycardia Skin: normal color, warm/dry, No rash Neuro/Psych: alert, normal mood/affect, oriented x 3 ICD10 Worksheet Patient Problems: Problems Problem Status Onset Hypoxia Acute Pericardial effusion Acute Pleural effusion on left Acute Ataxia Acute Hypotension Acute Pneumonia Acute
--- NOTE | 2017-01-30 14:20 | PDINTPN ---
Ginner Progress Note Assessment/Plan: Assessment/plan: 67F with recent PNA on RIGHT SIDE and treated with appropriate abx, re-admitted with SOB. CTA ruled out PE but showed large LEFT pleural effusion Tap revealed non-specific exudate and symptomatically improved but etiology remains unclear. Also had mild pericardial effusion of uncertain significance. * Pleural effusion- etiology remains unclear, and review of films during this admission show fairly rapid re-accumulation. Does not seem directly related to recent PNA, and pelvic mass workup in progress (likely benign fibroids). MALA panel negative but CA-125 60-80 (not >200). CT shows areas of consolidation c/w atelectatic segment? Not likely PNA as indicated by rads. Await production sampler/onc review * Hypoxemia- near baseline since she only uses nocturnal O2. * 01/29/17 13:47 01/30/17 14:17 Subjective: slight increase in non-productive cough Objective: Vital Signs Temp Pulse Resp BP Pulse Ox 37.1 C 69 19 92/53 L 97 01/30/17 11:25 01/30/17 11:25 01/30/17 11:25 01/30/17 11:25 01/30/17 11:25 Laboratory Results 01/28/17 08:05 01/27/17 08:31 01/29/17 01/30/17 01/31/17 05:59 05:59 05:59 Intake Total 1450 300 Output Total 1200 3300 Balance 250 -3000 PT 13.9 SEC (12.0-15.0) 01/25/17 04:16 INR 1.08 (0.83-1.16) 01/25/17 04:16 Physical Exam - Physical Exam General Appearance: WD/WN, alert, no apparent distress EENT: PERRL/EOMI Neck: supple Respiratory: lungs clear, normal breath sounds, No respiratory distress Cardiac/Chest: regular rate, rhythm, No edema Abdomen: normal bowel sounds, non-tender, soft, No distended Skin: normal color, warm/dry Lymphatic: no adenopathy Extremities: No pedal edema Neuro/Psych: alert, normal mood/affect, oriented x 3 ICD10 Worksheet Patient Problems: Problems Problem Status Onset Hypoxia Acute Pericardial effusion Acute Pleural effusion on left Acute Ataxia Acute Hypotension Acute Pneumonia Acute
[2017-01-30 15:28] VITALS: O2SAT 80
--- NOTE | 2017-01-30 15:29 | HOSPPROG ---
Hospitalist Progress Note Assessment/Plan: 67 yo F w recent pneumococcal pneumonia now w L sided pleural effusion New large left pleural effusion s/p thoracentesis - exudative -? parapneumonic - but recent PNA was on right stable outpt cfollow up pelvic mass: needs hysteroscopy Pericardial effusion -small by ECHO Recent Strep pneumo PNA + bacteremia -s/p 14 days Levaquin Pleurisy post thoracentesis -improving doing well w toradol proph: LMWH starting tomorrow if staying Subjective: case disussed at length w dr smith. hypoxic on RA Objective: Vital Signs Temp Pulse Resp BP Pulse Ox 37.1 C 69 19 92/53 L 97 01/30/17 11:25 01/30/17 11:25 01/30/17 11:25 01/30/17 11:25 01/30/17 11:25 Laboratory Results 01/28/17 08:05 01/27/17 08:31 01/29/17 01/30/17 01/31/17 05:59 05:59 05:59 Intake Total 1450 300 Output Total 1200 3300 Balance 250 -3000 PT 13.9 SEC (12.0-15.0) 01/25/17 04:16 INR 1.08 (0.83-1.16) 01/25/17 04:16 - Physical Exam Constitutional: no apparent distress, appears nourished Eyes: PERRL, anicteric sclera Ears, Nose, Mouth, Throat: moist mucous membranes, hearing normal Cardiovascular: regular rate and rhythym, no murmur, rub, or gallop Respiratory: no respiratory distress, no rales or rhonchi Gastrointestinal: normoactive bowel sounds, soft, non-tender abdomen Genitourinary: no bladder fullness, No bassett in urethra Skin: warm, normal color Musculoskeletal: full muscle strength, no muscle tenderness Neurologic: AAOx3 ICD10 Worksheet Patient Problems: Problems Problem Status Onset Hypoxia Acute Pericardial effusion Acute Pleural effusion on left Acute Ataxia Acute Hypotension Acute Pneumonia Acute
--- NOTE | 2017-01-30 16:03 | PDIAF ---
- Diagnosis Diagnosis: pleural effusion Code Status: Full Code - Medication Management Discharge Medications: Medications to Continue on Transfer Doxepin HCl 75 mg PO HS 01/05/17 [Last Taken 01/04/17] Herbals/Supplements -Info Only 1 ea PO HS 01/05/17 [Last Taken 01/04/17] LORazepam [Lorazepam] 0.5 mg PO HS 01/05/17 [Last Taken 01/04/17] Levothyroxine [Synthroid 100 mcg (*)] 100 mcg PO Q2D@01/05/17 [Last Taken 05/18] Levothyroxine [Synthroid 112 mcg (*)] 112 mcg PO Q2D@01/05/17 [Last Taken 06/18] Liothyronine Sodium [Cytomel 5 mcg (*)] 5 mcg PO DAILY 01/05/17 [Last Taken 06/18] Melatonin [Melatonin 3 MG (*)] 3 mg PO HS 01/05/17 [Last Taken 01/04/17] Acetaminophen [Tylenol 325mg (*)] 650 mg PO Q4HRS PRN tab 01/09/17 [Last Taken Unknown] Advanced Probiotic Formula 1 tab PO TIDMEAL 01/25/17 [Last Taken Unknown] Albuterol [Ventolin Hfa Inhaler] 1 - 2 puffs IH Q4H PRN 01/25/17 [Last Taken Unknown] C/E/Zn/Cu/OM3/DHA/EPA/LUT/ZEAX [Preservision Areds 2 Softgel] 1 each PO BID [Last Taken Unknown] Integrative Digestive Formula 1 cap PO BIDMEAL 01/25/17 [Last Taken Unknown] Polyethylene Glycol 3350 [Miralax 17 gm (*)] 17 gm PO DAILY PRN 01/25/17 [Last Taken Unknown] Sennosides/Docusate Sodium [Senokot-S] 1 - 2 tab PO BID PRN 01/25/17 [Last Taken Unknown] guaiFENesin [Mucinex 600 MG (*)] 1,200 mg PO BID PRN 01/25/17 [Last Taken Unknown] Discharge Medications: Refer to the Discharge Home Medication list for PRN reason. - Orders Services needed: Home Longterm Care Face to Face: I certify that this patient was under my care and that I had the required [id number] encounter meeting the encounter requirements on the discharge day. My findings support the fact that the patient is homebound as defined in Home Care Face to Face Continued: CMS Chapter 7 Medicare Benefits Manual 30.1.1 , The condition of the patient is such that there exists a normal inability to leave home and consequently, leaving home would require a considerable and taxing effort. - Follow Up Care Current Providers and Referrals: Sean Red MD [Medical Doctor] - Tiana Ayala MD [Primary Care Provider] - As per Instructions
--- NOTE | 2017-01-30 16:04 | PDHOMEO2F ---
Home Oxygen Face to Face Home Orders: I certify that a physician or a nurse practitioner or physician's diagnostic assistant has had a [id number] encounter with this patient on the date of this order due to the diagnosis listed, which relates to the primary reason the patient requires home oxygen. Alternative treatments have been tried, or considered, and deemed ineffective. It is anticipated that supplemental oxygen will result in improvement with treatment. Home oxygen qualifying diagnosis: pleural effusion SpO2 on room air (%): 78 Frequency of home oxygen needed: continuous Home oxygen liters per minute: 2 Home oxygen delivery device: nasal cannula Concentrator: No E-tanks for mobility and back up: Yes If ordering portable O2, is the patient mobile in the home?: Yes I certify that, based on these findings, the home oxygen is medically necessary for this patient for the following length of time. Length of time home oxygen needed: 1 month
--- NOTE | 2017-01-30 16:05 | GDS ---
[f rep st] DISCHARGE SUMMARY DISCHARGE DIAGNOSES: 1. Left-sided pleural effusion of uncertain etiology, exudate negative cytology. 2. Exophytic pelvic mass felt to be likely exophytic fibroid. 3. Status post thoracentesis x2. 4. Hypoxemic respiratory failure. 5. Recent pneumococcal pneumonia with bacteremia status post antibiotics. CONSULT THIS ADMISSION: 1. Infectious Disease. 2. Pulmonary. 3. Interventional Radiology. HOSPITAL COURSE: Please see admission history and physical by Dr. Zachary Espinoza. The patient presented with increased work of breathing. She was noted to have a recurrent pleural effusion. She was ruled out for pulmonary embolism at that time. The patient has had 2 thoracentesis because of reaccumulation of fluid, has been consistent with an exudate but not an empyema. She had negative cytology. A chest CT showed no major structural abnormalities. During her previous admission, she was noted to have a pelvic mass. CA-125 was sent, was slightly elevated but not consistent with widely metastatic disease. That pelvic ultrasound showed normal endometrial lining as well as ovaries that appeared distinct from the mass. It is not clear what this represents. The patient is discharged home today with oxygen. She has outpatient followup with Dr. Red. Repeat chest x-ray and I have set up expedited followup with [facility] for further evaluation of her mass. The patient's questions were answered. The patient had a rheumatologic workup for the etiology of her effusion and now was largely negative. /[id number]/MODL MTDD
--- NOTE | 2017-01-30 16:27 | PDHOMEO2F ---
Home Oxygen Face to Face Home Orders: I certify that a physician or a nurse practitioner or physician's anesthesiologist assistant has had a [id number] encounter with this patient on the date of this order due to the diagnosis listed, which relates to the primary reason the patient requires home oxygen. Alternative treatments have been tried, or considered, and deemed ineffective. It is anticipated that supplemental oxygen will result in improvement with treatment. Home oxygen qualifying diagnosis: pleural effusion SpO2 on room air (%): 78 Frequency of home oxygen needed: continuous Home oxygen liters per minute: 2 Home oxygen delivery device: nasal cannula Concentrator: No E-tanks for mobility and back up: Yes If ordering portable O2, is the patient mobile in the home?: Yes I certify that, based on these findings, the home oxygen is medically necessary for this patient for the following length of time.
--- NOTE | 2017-01-31 01:22 | GCON ---
[f rep st] CONSULTATION NEW PATIENT CONSULTATION REASON FOR CONSULTATION: Recurrent left-sided pleural effusion in the setting of pelvic mass. Felicity is a 67-year-old woman with hypothyroidism and a recent admission for streptococcal pneumonia as well as bacteremia. She presented with shortness of breath. She was discharged from her original h ospitalization on January 09 and was to finish a 14-day course of oral levofloxacin for treatment of streptococcal pneumoniae and bacteremia. She felt better initially but 3rd week home, she started to feel worse with increasing shortness of breath and fatigue. She continued to cough and more recentl y had left-sided chest pain with deep inspiration and noted fevers of 102 at home. She was readmitte d. A CT PE was negative for PE but notable for new large left-sided pleural effusion as well as a new pe ricardial effusion. She was also mildly hypoxic. Since that time, she has been seen by Infectious Disease as well as Pulmonary. She has had thoracent esis x2 this hospitalization showing an exudate with white blood cell count over 4000, predominantly neutrophils. No evidence of empyema and originally felt this was a parapneumonic effusion. However, it was strange that this was on the opposite side her original pneumonia was diagnosed. Thoracentes is was sent for cytology x2 which was negative for malignant cells. The patient remains on oxygen. Bilateral pleural effusions are noted on her chest x-rays. Her most recent x-ray shows patchy left basilar consolidation which may represent multifocal pneumonia. The p atient is currently off antibiotics. She continues on prophylactic Lovenox, thyroid medication, and p.r.n. During the last 2 hospitalizations she has had a chest CT on January 29 again showing the above-ment ioned left pleural effusion and patchy airspace consolidation in left lung base, persistent right low er lobe atelectasis and/or consolidation unchanged, and small pericardial effusion. She had an abdom inal CT on January 03, 2017 showing a large macrolobulated pelvic mass likely representing uterine fi broid. Pelvic sonogram was recommended. This was performed on January 05, demonstrating large heter ogeneous pelvic mass, again likely representing an exophytic fibroid, likely corresponds to presumed fibroid uterus seen in 2006; however, the normal-appearing uterus was not appreciated on the previous study. Follow up was recommended in 3-6 months. The patient did have a gynecologic consult and out patient followup was recommended. PAST MEDICAL HISTORY: Hypothyroidism and insomnia. SOCIAL HISTORY: Negative for tobacco use, alcohol, or drugs. FAMILY HISTORY: Positive for colon and bladder cancer in her father. Positive for breast cancer in a maternal cousin. GYNECOLOGIC HISTORY: Had an IUD in place which got infected 40 years ago status post laparoscopy. S he is post menopausal. She denies a personal history of breast or ovarian cancer. She reports she i s up to date on mammograms and colonoscopies. REVIEW OF SYSTEMS: As per HPI. Otherwise, patient denies bloating, weight gain, or weight loss exce pt for a few pounds lost during 2014 to 2016 when she was under severe stress. She denies constipati on. She denies any asbestos or tobacco exposure. PHYSICAL EXAMINATION: VITAL SIGNS: Today show blood pressure 92/53, heart rate of 69, respiration r ate 19, saturating 97% on 2 L nasal cannula. Temp 37.1. GENERAL: She is fatigued appearing but non toxic. HEENT: Anicteric. She has nasal cannula in place. Oropharynx is clear. NECK: No cervical or supraclavicular lymph nodes. HEART: Regular rate and rhythm. LUNGS: Decreased breath sounds bi laterally, left greater than right. Has some rhonchi in the right middle lobe. ABDOMEN: Soft. [place] el sounds positive. No obvious fluid mass. No obvious fluid shift. No obvious mass. LOWER EXTREMI TIES: Thin, no edema. NEUROLOGIC: Nonfocal. SKIN: No rash. LABORATORY ASSESSMENT: White blood cell count 4.4, hemoglobin 11.3, hematocrit 35, platelet count of 268,000. Her C-reactive protein is 84, total protein 5.4, albumin 2.8, total bilirubin 0.2, creatin ine 0.8, sodium 136. CA-125 is 80. MALA screen is pending. Her ESR is elevated at 60. ASSESSMENT AND PLAN: 67-year-old woman with repeat admission for hypoxia and left-sided pleural effu marnie. She has had thoracentesis x2, revealing an exudative process with no evidence of empyema. She is being followed by Infectious Disease as well as Pulmonology. I have been asked to see her due to questionable pelvic mass, although appears to be a benign process. 1. Pleural effusion: Etiology remains unclear. Certainly is concerning she has had fairly rapid re accumulation, although cytology has not revealed a malignant process. CA-125 was elevated but not si gnificantly and this is certainly a nonsensitive and nonspecific test and can be elevated for other r easons. She has no obvious ascites. Consideration for more thorough investigation of pleural space with a VATS is felt reasonable by Pulmonology versus pleurodesis. 2. Pelvic mass: I reviewed her ultrasound reports and does appear to be a fibroid, although not cer tain. I do think with an elevated 125, we are committed to evaluating this laparoscopically by Gynec ology. I do not feel strongly that this is an ovarian cancer but given the recurrent pleural effusio n, I think it is worth investigating. Whether or not that needs to be done as an inpatient is a bett er question for Gynecology to answer. I see no other evidence of malignancy. She is up to date on m ammograms and colonoscopy. 3. Overall plan: I am happy to continue to follow the patient as an outpatient with me personally o r with 1 of my partners, although at this time she does not have a diagnosis of malignancy. I do thi nk she needs gynecologic workup. I see no utility to repeating any imaging at this time and I do not think any labs will be helpful. The question is does she need further evaluation of pleural space i f she reaccumulates as I do agree this is a little unusual. I will mention that most of the time wit hout ascites, pleural effusion from ovarian cancer is usually on the right and she has no obvious per itoneal studding or any abnormal findings on her CT that suggest some other concerning process. From imaging I have reviewed, she has no evidence of mesothelioma either, although this would be lower on the differential. Discussed with patient at length and will follow along while patient is here and plan outpatient followup accordingly. /[id number]/MODL
--- NOTE | 2017-01-31 11:35 | ASDISCHSUM ---
Discharge Information Plan Status:Home with No Needs Medically Cleared to Leave:01/29/2017 Discharge Date:01/30/2017 06:20 PM CM D/C Disposition:Home, Routine, Self-Care ADT D/C Disposition:Home, Routine, Self-Care Projected Discharge Date:01/30/2017 12:00 AM Transportation at D/C:Family Discharge Delay Reason: Follow-Up Date:01/30/2017 12:00 AM Discharge Slot: Final Diagnosis: Placement Information Patient Contact Information Contact Name:CHLOE Relationship: Address:[address] [place] Alternate Phone: State/Zip Code:[place] [address] Email: Financial Information Financial Class:[facility] Primary Plan Desc:STEPHANIA CAZARES Sai [facility] Primary Plan Number:[id number] Secondary Plan Desc: Secondary Plan Number: Assessment Information [facility] CM Progress Note CM Note CM Note Notes: 01/25/2017 Case Management Note Reviewed chart. Pt d/c independent from hospital on 01/09. There are not PT or OT evals ordered at this time. No case management d/c needs identified d/t pt age, marital status and activity levels prior to admission. Case Management d/c poc: anticipating home independent with family support when medically stable. Case Management available if needs change. Date Signed: 01/25/2017 09:51 AM Electronically Signed By:Priyanka Amaya RN [facility] CM Progress Note CM Note CM Note Notes: 01/25/2017 Case Management Note Phone call from [facility] ([phone]) that pt is open with them are receiving RN support through [facility]. Case Management d/c poc: Resume [facility] RN services at d/c. Date Signed: 01/25/2017 02:55 PM Electronically Signed By:Priyanka Amaya RN [facility] CM Progress Note CM Note CM Note Notes: 01/28/2017 Case Management Note Met w/pt. Pt agreeable to restarting [facility] RN upon discharge. Provided updates to [facility]. Pt spouse Scarlett ([phone] )has postponed a business trip to [place] until Feb.08. He will be overseas for 2 to 2.5 weeks. Pt has no family in the area. Case Management d/c poc: home with resumption of [facility] RN when medically stable. Case Management to follow. Date Signed: 01/28/2017 02:05 PM Electronically Signed By:Priyanka Amyaa RN Intervention Information
== END 2017-01-30 18:20 | disposition home health service (06) | DRG 186 ==
LOC: F2W 01-25 00:16 → OBSVTOIN 01-25 13:41
PROVIDERS: ADMIT Student in an Organized Health Care Education/Training Program; ATTEND Internal Medicine
PROC: 0W9B3ZX Drainage of Left Pleural Cavity, Percutaneous Approach, Diagnostic (ICD-10-PCS; principal; 2017-01-25)
PROC: 0W9B3ZX Drainage of Left Pleural Cavity, Percutaneous Approach, Diagnostic (ICD-10-PCS; 2017-01-28)
DX: J90 Pleural effusion, not elsewhere classified (principal); R19.00 Intra-abdominal and pelvic swelling, mass and lump, unspecified site; J96.91 Respiratory failure, unspecified with hypoxia; I31.3 Pericardial effusion (noninflammatory); Z87.01 Personal history of pneumonia (recurrent); E03.9 Hypothyroidism, unspecified; G47.00 Insomnia, unspecified; F32.9 Major depressive disorder, single episode, unspecified; F41.9 Anxiety disorder, unspecified
CPT/HCPCS: 86304-90; G0378; J0696; J1650; J1885; Q9967

== ENCOUNTER → 2017-02-07 | Outpatient (CLI) | payer OTHER | LOC: FIMAGING 10:28 | PROVIDERS: ATTEND Internal Medicine Critical Care Medicine | DX: J18.9 Pneumonia, unspecified organism (principal) ==

== ENCOUNTER → 2017-03-29 | Outpatient (CLI) | payer OTHER ==
[~2017-03-29] MED LIST changes: +GADOBUTROL 10 ML VIAL IVP ONE; -IOPAMIDOL (ISOVUE-300) 100 ML BTL ONE
== END ==
LOC: FIMAGING 15:12
PROVIDERS: ATTEND Obstetrics & Gynecology
DX: N85.2 Hypertrophy of uterus (principal); D25.2 Subserosal leiomyoma of uterus; N83.201 Unspecified ovarian cyst, right side
CPT/HCPCS: A9585

== ENCOUNTER → 2017-03-29 | Outpatient (CLI) | payer OTHER | LOC: FIMAGING 15:17 | PROVIDERS: ATTEND Internal Medicine Pulmonary Disease | DX: Z87.09 Personal history of other diseases of the respiratory system (principal) ==

== ENCOUNTER → 2017-09-16 | Outpatient (CLI) | payer OTHER | LOC: BMCIMAGING 14:46 | PROVIDERS: ATTEND Family Medicine | DX: Z12.31 Encounter for screening mammogram for malignant neoplasm of breast (principal) ==

== ENCOUNTER → 2017-11-26 | Outpatient (CLI) | payer OTHER | LOC: FIMAGING 16:02 | PROVIDERS: ATTEND Family Medicine | DX: S22.41XA Multiple fractures of ribs, right side, initial encounter for closed fracture (principal) ==

== ENCOUNTER 2018-02-28 16:16 | Emergency (ER) | payer OTHER ==
--- NOTE | 2018-02-28 16:33 | EDPHY ---
H & P Time Seen by Provider: 02/28/18 16:31 HPI/ROS: CHIEF COMPLAINT: Abdominal pain HISTORY OF PRESENT ILLNESS: Patient felt well yesterday and infected really big dinner could she was hungry. She thinks that she"ate too much last night. "Today for last 4-5 hours she started with abdominal pain on the right side which about an hour ago started radiating her right shoulder. Worse with eating and worse with movement. No urinary symptoms and no vomiting or diarrhea. Not changed with motion of the right shoulder. No injury or trauma or fever or chills. REVIEW OF SYSTEMS: Eye: no change in vision ENT: no sore throat Cardiac: no chest pain or syncope Pulmonary: no cough or SOB Abdomen: HPI Musculoskeletal: HPI Skin: no rash Neuro: no headache Constitutional: no fever : no urinary symptoms A comprehensive 10 point review of systems is otherwise negative aside from elements mentioned in the history of present illness. PAST MEDICAL HISTORY: Includes hypothyroid, pneumonia and pleural effusion in January of 2017 Social history: Nonsmoker General Appearance: Alert and conversant, cooperative. Eyes: No scleral icterus. ENT, Mouth: Normal mucous membranes. Respiratory: Normal respiratory effort, breath sounds equal, lungs are clear to auscultation. Cardiovascular: Regular rate and rhythm. Gastrointestinal: Right abdominal tenderness just lateral to the umbilicus and over McBurney's point. Negative Richards sign, no right upper quadrant tenderness. Neurological: Alert, face symmetric, normal motor and sensory in extremities. Skin: Warm and dry, no rashes. Musculoskeletal: Normal range of motion of the right shoulder. Psychiatric: Not agitated. Emergency Department course/MDM: CT scanning discussed and consented. Shoulder symptoms would be more likely radiation from primary abdominal process. 1806: Constipation per Dr. Forbes on CT scan, no other abnormalities. Does not have obvious pancreatic inflammation on imaging. 1828: Patient now says she feels fine, and has no abdominal pain now. No epigastric tenderness. Her lipase is noted, but acute pancreatitis clinically seems unlikely since she has no evidence of pancreatic inflammation on CT and her pain is completely gone now. Will try having her eat and drink and if she does not have recurrent pain will send her home with treatment for constipation. 1848: Tolerated oral food and water without recurrent abdominal pain, she is hungry. She would like to go home which I think is reasonable. Smoking Status: Never smoked Constitutional: Initial Vital Signs Temperature (C) 36.5 C 02/28/18 16:20 Heart Rate 73 02/28/18 16:20 Respiratory Rate 18 02/28/18 16:20 Blood Pressure 111/73 02/28/18 16:20 O2 Sat (%) 98 02/28/18 16:20 O2 Delivery Mode Room Air Allergies/Adverse Reactions: ampicillin [Ampicillin] Allergy (Intermediate, Verified 04/27/16 02:35) Hives lactose Allergy (Verified 04/27/16 02:35) Home Medications: Medication Instructions Recorded Doxepin HCl 75 mg PO HS 01/05/17 Herbals/Supplements -Info Only 1 ea PO HS 01/05/17 LORazepam [Lorazepam] 0.5 mg PO HS 01/05/17 Levothyroxine [Synthroid 100 mcg 100 mcg PO Q2D@06 01/05/17 (*)] Levothyroxine [Synthroid 112 mcg 112 mcg PO Q2D@06 01/05/17 (*)] Liothyronine Sodium [Cytomel 5 mcg 5 mcg PO DAILY 01/05/17 (*)] Melatonin [Melatonin 3 MG (*)] 3 mg PO HS 01/05/17 Acetaminophen [Tylenol 325mg (*)] 650 mg PO Q4HRS PRN tab 01/09/17 Advanced Probiotic Formula 1 tab PO TIDMEAL 01/25/17 Albuterol [Ventolin Hfa Inhaler] 1 - 2 puffs IH Q4H PRN 01/25/17 C/E/Zn/Cu/OM3/DHA/EPA/LUT/ZEAX 1 each PO BID 01/25/17 [Preservision Areds 2 Softgel] Integrative Digestive Formula 1 cap PO BIDMEAL 01/25/17 Polyethylene Glycol 3350 [Miralax 17 gm PO DAILY PRN 01/25/17 17 gm (*)] Sennosides/Docusate Sodium 1 - 2 tab PO BID PRN 01/25/17 [Senokot-S] guaiFENesin [Mucinex 600 MG (*)] 1,200 mg PO BID PRN 01/25/17 Medical Decision Making - Diagnostics Imaging Results: Imaging Impressions Abdomen CT 02/28/18 17:17 Impression: 1. Constipation. 2. No CT evidence of appendicitis, abscess, or bowel obstruction. 3. No peripancreatic fluid. 4. Small hiatal hernia. 5. Degenerative lumbar spine, with old mild compression deformity L1 vertebral body. Consider DEXA bone scan evaluation when the patient's medical condition permits. Findings and recommendations discussed with Emergency Department physician, Leandro Head M.D., at 1810 hours, on February 28, 2018. Final report concurs with initial preliminary interpretation. Imaging: Discussed imaging studies w/ wrapper stitcher Radiologist Differential Diagnosis: Differential considered including but not limited to hepatitis, cholecystitis, biliary colic, pancreatitis, appendicitis, constipation, bowel obstruction. - Data Points Laboratory Results: Laboratory Results 02/28/18 16:54 02/28/18 16:54 02/28/18 02/28/18 02/28/18 17:10 17:03 16:54 WBC RBC Hgb POC Hgb 15.6 gm/dL gm/dL (12.6-16.3) Hct POC Hct 46 % % (38-47) MCV MCH MCHC RDW Plt Count MPV Neut % (Auto) Lymph % (Auto) [place] % (Auto) Eos % (Auto) Baso % (Auto) Nucleat RBC Rel Count Absolute Neuts (auto) Absolute Lymphs (auto) Absolute Monos (auto) Absolute Eos (auto) Absolute Basos (auto) Absolute Nucleated RBC Immature Gran % Immature Gran # POC Sodium 142 mEq/L mEq/L (135-145) Sodium 138 mEq/L mEq/L (135-145) POC Potassium 3.9 mEq/L mEq/L (3.3-5.0) Potassium 4.1 mEq/L mEq/L (3.5-5.2) POC Chloride 103 mEq/L mEq/L (97-110) Chloride 105 mEq/L mEq/L (97-110) Carbon Dioxide 25 mEq/l mEq/l (22-31) Anion Gap 8 mEq/L mEq/L (6-14) POC BUN 18 mg/dL mg/dL (7-23) BUN 19 mg/dL mg/dL (7-23) Creatinine 0.8 mg/dL mg/dL (0.6-1.0) POC Creatinine 0.8 mg/dL mg/dL (0.6-1.0) Estimated GFR > 60 Glucose 86 mg/dL mg/dL (70-100) POC Glucose 87 mg/dL mg/dL (70-100) Calcium 9.6 mg/dL mg/dL (8.5-10.4) Total Bilirubin 0.3 mg/dL mg/dL (0.1-1.4) Conjugated Bilirubin 0.1 mg/dL mg/dL (0.0-0.5) Unconjugated Bilirubin 0.2 mg/dL mg/dL (0.0-1.1) AST 28 IU/L IU/L (14-46) ALT 26 IU/L IU/L (9-52) Alkaline Phosphatase 71 IU/L IU/L (38-126) Total Protein 7.8 g/dL g/dL (6.3-8.2) Albumin 4.5 g/dL g/dL (3.5-5.0) Lipase 718 IU/L H IU/L (23-300) Urine Color PALE YELLOW Urine Appearance CLEAR Urine pH 7.0 (5.0-7.5) Ur Specific [place] 1.004 (1.002-1.030) Urine Protein NEGATIVE (NEGATIVE) Urine Ketones NEGATIVE (NEGATIVE) Urine Blood NEGATIVE (NEGATIVE) Urine Nitrate NEGATIVE (NEGATIVE) Urine Bilirubin NEGATIVE (NEGATIVE) Urine Urobilinogen NEGATIVE EU EU (0.2-1.0) Ur Leukocyte Esterase NEGATIVE (NEGATIVE) Urine Glucose NEGATIVE (NEGATIVE) 02/28/18 16:54 WBC 5.02 10^3/uL 10^3/uL (3.80-9.50) RBC 4.74 10^6/uL 10^6/uL (4.18-5.33) Hgb 14.7 g/dL g/dL (12.6-16.3) POC Hgb Hct 44.9 % % (38.0-47.0) POC Hct MCV 94.7 fL fL (81.5-99.8) MCH 31.0 pg pg (27.9-34.1) MCHC 32.7 g/dL g/dL (32.4-36.7) RDW 13.8 % % (11.5-15.2) Plt Count 204 10^3/uL 10^3/uL (150-400) MPV 9.6 fL fL (8.7-11.7) Neut % (Auto) 60.3 % % (39.3-74.2) Lymph % (Auto) 29.7 % % (15.0-45.0) [place] % (Auto) 8.0 % % (4.5-13.0) Eos % (Auto) 1.0 % % (0.6-7.6) Baso % (Auto) 0.8 % % (0.3-1.7) Nucleat RBC Rel Count 0.0 % % (0.0-0.2) Absolute Neuts (auto) 3.03 10^3/uL 10^3/uL (1.70-6.50) Absolute Lymphs (auto) 1.49 10^3/uL 10^3/uL (1.00-3.00) Absolute Monos (auto) 0.40 10^3/uL 10^3/uL (0.30-0.80) Absolute Eos (auto) 0.05 10^3/uL 10^3/uL (0.03-0.40) Absolute Basos (auto) 0.04 10^3/uL 10^3/uL (0.02-0.10) Absolute Nucleated RBC 0.00 10^3/uL 10^3/uL (0-0.01) Immature Gran % 0.2 % % (0.0-1.1) Immature Gran # 0.01 10^3/uL 10^3/uL (0.00-0.10) POC Sodium Sodium POC Potassium Potassium POC Chloride Chloride Carbon Dioxide Anion Gap POC BUN BUN Creatinine POC Creatinine Estimated GFR Glucose POC Glucose Calcium Total Bilirubin Conjugated Bilirubin Unconjugated Bilirubin AST ALT Alkaline Phosphatase Total Protein Albumin Lipase Urine Color Urine Appearance Urine pH Ur Specific [place] Urine Protein Urine Ketones Urine Blood Urine Nitrate Urine Bilirubin Urine Urobilinogen Ur Leukocyte Esterase Urine Glucose Medications Given: Discontinued Medications Sodium Chloride (Ns) 1,000 mls @ 0 mls/hr IV EDNOW ONE; Wide Open PRN Reason: Protocol Stop: 02/28/18 16:44 Last Admin: 02/28/18 17:01 Dose: 1,000 mls Magnesium Citrate (Magnesium Citrate) 300 ml PO ONCE ONE Stop: 02/28/18 18:51 Last Admin: 02/28/18 19:04 Dose: 300 ml Point of Care Test Results: Chemistry 02/28/18 17:03 POC Sodium 142 mEq/L mEq/L (135-145) POC Potassium 3.9 mEq/L mEq/L (3.3-5.0) POC Chloride 103 mEq/L mEq/L (97-110) POC BUN 18 mg/dL mg/dL (7-23) POC Creatinine 0.8 mg/dL mg/dL (0.6-1.0) POC Glucose 87 mg/dL mg/dL (70-100) ISTAT H&H 02/28/18 17:03 POC Hgb 15.6 gm/dL gm/dL (12.6-16.3) POC Hct 46 % % (38-47) Departure - Departure Disposition: Home, Routine, Self-Care Clinical Impression: Abdominal pain Qualifiers: Abdominal location: generalized Qualified Code(s): R10.84 - Generalized abdominal pain Condition: Good Instructions: Magnesium Citrate (By mouth), Acute Abdominal Pain (ED) Additional Instructions: You had a slightly elevated lipase test which can happen with inflammation of her pancreas, but you did not have any inflammation of her pancreas on CT scan. Treatment for constipation as we discussed, increased oral fluids. I think your right shoulder pain is related (referred pain) to the abdominal symptoms. You need to return to the emergency department immediately if you develop worsening or severe pain, fever, vomiting or you are not completely better in 8- 12 hours. Referrals: Tiana Ayala MD [Primary Care Provider] - As per Instructions
[2018-02-28] MEDS ORDERED: NS 1,000 ML IV ONE (16:43)
[2018-02-28 17:27] LABS: PLATELET COUNT 204 10^3/uL (150-400)
[2018-02-28] MEDS ORDERED: IOPAMIDOL (ISOVUE-300) 100 ML BTL ONE (17:44)
[2018-02-28] MEDS ORDERED: MAGNESIUM CITRATE 300 ML BOTTLE PO ONE (18:50)
[2018-02-28 19:13] VITALS: BP 121/61
== END 2018-02-28 19:12 | disposition home or self-care (01) ==
DX: R10.84 Generalized abdominal pain (principal); E86.9 Volume depletion, unspecified
CPT/HCPCS: 82435-PO; 82565-PO; 82947-PO; 84132-PO; 84295-PO; 84520-PO; 85014-PO; Q9967